=== PATIENT | male | born 1945 | race Caucasian/White ===

== ENCOUNTER 2023-09-12 09:39 | Inpatient (IN) ==
--- OUTSIDE RECORDS SUMMARY | 2023-09-12 09:43 | External Medical Summary | Summary of Care ---
Author Name Unknown Organization [facility] Address [address] [place] [address] Phone [phone] Care Team Providers Care Jewel Bearing Facer Name Role Phone Unavailable Primary Care Provider Unavailabl e Reason for Visit * Reason Onset Date Comments Insurance 07/27/2023 63 Fwd requireme nts Encounter Details Date Type Department Care Team (Late st Contact Info) Description 07/27/2023 Telephone Family Practice [address] [facility] [address] [place] [id number] Latonya Irving, DO [address] [place] [address] Insurance (63 Fwd requirements) Allergies No known active allergiesdocumented as of this encounter (statuses as of 07/27/2023) Medications Medication Sig Dispensed Refills Start Date End Date Status Aspirin 81 MG Oral Tablet Delayed Release Take 1 Tablet by mouth in the morning. 30 Tablet 24 01/22/2022 01/22/2024 Active Betamethasone Valerate 0.1 % External Cream (Valisone) Apply to affected area(s) 2 times a day For rash on foot. 0 01/22/2022 01/22/2024 Active documented as of this encounter (statuses as of 07/27/2023) Social History Tobacco Use Types Packs/Day Years Used Date Smoking Tobacco: Former Pipe Smokeless Tobacco: Never Sex and Gender Information Value Date Recorded Sex Assigned at Not on file Gender Identity Not on file Sexual Orientation Not on file Job Start Date Occupation Industry Not on file Not on file Not on file documented as of this encounter Miscellaneous Notes * Telephone Encounter - Shannon Yang OSA - 07/27/2023 3:05 PM EDT Discussed GOLD requirement, patient acknowledges and understands. Pt aware to maintain his [employer] insurance, regular follow ups, and his pcp will change to us. Pt scheduled with Dr Irving 5.10.24 documented in this encounter Plan of Treatment Upcoming Encounters Date Type Department Care Team (Late st Contact Info) Description 2023 1:40 PM EDT Office Visit Family Practice [address] [facility] [address] [place] [address] Latonya Irving DO [address] [place] [address] 2023 2:20 PM EDT Pharmacy Family Practice [address] 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 [address] [address] Health Maintenance Due Date Last Done Comments Depression Screening 1957 Hepatitis C Screening 08/05/1963 DTaP,Tdap,and Td Vaccines (1 - Tdap) 08/05/1962 Zoster Vaccines (3 of 3) 03/23/2022 01/26/2022, 12/28 COVID-19 Vaccine (4 - season) 2022 01/22/2021, 06/11/2020, 05/21/2020 Influenza Vaccine (FLU shot) (Season Ended) 2023 12/19/2020, 01/18/2019, 01/20/2018, Additional history exists Pneumococcal Vaccine: 65+ Years Completed 01/20/2016, 07/02/2010 GARDASIL-HPV IMMUNIZATION SERIES Aged Out No longer eligible based on patient's age to complete this topic Hepatitis B Aged Out No longer eligi ble based on patient's age to complete this topic MENINGOCOCCAL (MENACTRA/MENVEO) Aged Out No longer eligible based on patient's age to complete this topic documented as of this encounter Medical Devices Not on filedocumented as of this encounter
--- OUTSIDE RECORDS SUMMARY | 2023-09-12 09:43 | External Medical Summary | Summary of Care ---
Author Name Unknown Organization [facility] Address [address] [place] [address] Phone [phone] Care Team Providers Care Radiology Orderly Name Role Phone Latonya Irving DO Primary Care Provider [phone] Reason for Visit * Reason Comments NEW PATIENT Encounter Details Date Type Department Care Team (Late st Contact Info) Description 2023 1:40 PM EDT Office Visit Family Practice [address] [facility] [address] [place] [address] Latonya Irving [address] [place] [address] History of prostate cancer*; Hypertension goal BP (blood pressure) < 140/90; Hx of CABG; Coronary artery disease involving bad river band coronary artery of bad river band heart without angina pectoris; Dyslipidemia; Type 2 diabetes mellitus with hemoglobin A1c goal of less than 7.0% ([facility]); Risk and functional assessment Allergies No known active allergiesdocumented as of this encounter (statuses as of 2023) Medications Medication Sig Dispensed Refills Start Date End Date Status Aspirin 81 MG Oral Tablet Delayed Release Take 1 Tablet by mouth in the morning. 30 Tablet 24 01/22/2022 01/22/2024 Active Betamethasone Valerate 0.1 % External Cream (Valisone) Apply to affected area(s) 2 times a day For rash on foot. 0 01/22/2022 01/22/2024 Active OneTouch Delica Plus [id number] Test blood sugar every morning before meal 0 07/02/2023 Active OneTouch Ultra Test In Vitro Strip Test blood sugar every morning 0 06/30/2023 06/29/2024 Active Atorvastatin Calcium 40 MG Oral Tablet (Lipitor) Take 1 Tablet by mouth in the morning. 0 07/26/2023 2023 Discontinued (Refill) Metoprolol Tartrate 25 MG Oral Tablet (Lopressor) Take 1 Tablet by mouth in the morning and 1 Tablet before bedtime. 0 07/26/2023 2023 Discontinued (Refill) Lisinopril 10 MG Oral Tablet (Prinivil) Take 1 Tablet by mouth at bedtime. 0 06/30/2023 2023 Discontinued (Refill) documented as of this encounter (statuses as of 2023) Active Problems Problem Noted Date Diagnosed Date History of prostate cancer 2023 Hypertension goal BP (blood pressure) < 140/90 0 2023 Hx of CABG 2023 Coronary artery disease invo lving bad river band coronary artery of bad river band heart without angina pectoris 2023 Type 2 diabetes mellitus wit h hemoglobin A1c goal of less than 7.0% 2023 Dyslipidemia 2023 documented as of this encounter (statuses as of 2023) Immunizations Name Administration Dates Next Due COVID-19 mRNA, LNP-s, No Pre serve, 2-Dose Series (BetKlub) 01/22/2021,06/11/2020,05/21/2020 COVID-19, MRNA-LNP, 23-24, P F, 30 MCG/0.3 mL, 12 YRS AND ABOVE, IM [facility] 02/15/2023,09/10/2022 COVID-19, mRNA, LNP-s, PF, B ooster, 100mcg/0.5mg (Moderna) 12/17/2021,07/10/2021 Pneumococcal Conjugate Vacc, 13 Valent (Prevnar) 01/20/2016 Pneumococcal Polysaccharide PPV23 (Pneumovax) 07/02/2010 RSV Vac., Recomb, Adjuvant, PF,0.5 Ml (Arexvy) 02/15/2023 Season Influenza, Quad, PF, Adjuvanted, 65+ Yrs, IM (FLUAD) 12/19/2020 Seasonal Influenza Virus Vac cine, Unspecified Formulation 12/11/2019,01/15/2007,01/23/2006 Seasonal Influenza, Quadriva lent Hd, 65+ Yrs 01/21/2022 Seasonal Influenza, Split, I IV3, No Preserve, Inj 12/30/2012,01/21/2012 Seasonal Influenza, Trivalen t, Adjuvanted, 65+ yrs 01/13/2017 Seasonal Influenza, Trivalen t, High Dose, No Preserve, IM 01/18/2019,01/20/2018,01/15/2016 TDAP (age 11 and older)(Adacel) 01/25/2018,01/20 Varicella Zoster Vaccine (Adult) 01/20/2007 Zoster Vaccine Recombinant (Shingrix) 09/22/2022 ,01/26/2022 documented as of this encounter Social History Tobacco Use Types Packs/Day Years Used Date Smoking Tobacco: Former Pipe Smokeless Tobacco: Never Tobacco Cessation:Counseling Given: Yes Alcohol Use Standard Drinks/Week Comments Yes 0 (1 standard drink = 0.6 oz pur e alcohol) occasional beer Hunger Vital Sign Answer Date Recorded Within the past 12 months, y ou worried that your food would run out before you got the money to buy more. Never true 07/30/19 24 Within the past 12 months, t he food you bought just didn't last and you didn't have money to get more. Never true 07/30/2023 Sex and Gender Information Value Date Recorded Sex Assigned at Not on file Gender Identity Not on file Sexual Orientation Not on file Job Start Date Occupation Industry Not on file Not on file Not on file documented as of this encounter Last Filed Vital Signs Vital Sign Reading Time Taken Comments Blood Pressure 122/60 2023 1:53 PM EDT Pulse 76 2023 1:53 PM EDT Temperature 36.4 C (97.5 F) 2023 1:53 PM ED T Respiratory Rate 12 2023 1:53 PM EDT Oxygen Saturation 95% 2023 1:53 PM EDT Inhaled Oxygen Concentration - - Weight 72.6 kg (160 lb) 2023 1:53 PM EDT Height 163.8 cm (5' 4.5") 2023 1:53 PM EDT Body Mass Index 27.04 2023 1:53 PM EDT documented in this encounter Patient Instructions * Patient Instructions* RavindraMabel chakrabortySUSANA - 2023 1:51 PM EDT Patient Instructions - Fall Prevention (This education is for all patients over 65 regardless of symptoms) Remember to take your current medications as prescribed. In order to prevent falls, you are encouraged to: Exercise Utilize assistive/adaptive devices Avoid multifocal lenses when walking Avoid hazards in home Maintain a regular toileting schedule Any questions please contact our office. Preventing Falls in the Home (This education is for all patients over 65 regardless of symptoms) As you get older, falls are more likely. Thats because your reaction time slows. Your muscles and joints may also get stiffer, making them less flexible. Illness, medications, and vision changes can also affect your balance. A fall could leave you unable to live on your own. To make your home safer, follow these tips: Floors Put nonskid pads under area rugs Remove throw rugs Replace worn floor coverings Tack carpets firmly to each step on carpeted stairs. Put nonskid strips on the edges of uncarpeted stairs Keep floors and stairs free of clutter and cords Arrange furniture so there are clear pathways Clean up any spills right away Bathrooms Install grab bars in the tub or shower Apply nonskid strips or put a nonskid rubber mat in the tub or shower Sit on a bath chair to bathe Use bathmats with nonskid backing Lighting Keep a flashlight in each room Put a nightlight along the pathway between the bedroom and the bathroom Arturo Patient Education Copyright 2008 - 2010 Arturo except where otherwise noted Preventing Falls: Exercises to Improve Balance, Flexibility, Strength, and Staying Power (This education is for all patients over 65 regardless of symptoms) Certain types of exercises may help make you less likely to fall. Try the ones below. Or do other exercises that your healthcare provider suggests. Depending on your health, you may need to start slowly. Dont let that stop you. Even small amounts of exercise can help you. Be sure to talk to yourhealthcare provider before starting any exercise program. Improve Balance Many types of exercise can help improve balance. Alli chi and yoga are good examples. Heres another one to try. You can do it anytime and almost anywhere. Stand next to a counter or solid support. Push yourself up onto your tiptoes. Hold for 5 seconds. If you start to lose your balance, hold on to the counter. Rest and repeat 5 times. Work up to holding for 20 to 30 seconds, if you can. Increase Flexibility Being more flexible makes it easier for you to move around safely. Try exercises like the seated hamstring stretch. Sit in a chair and put one foot on a stool. Straighten your leg and reach with both hands down either side of your leg. Reach as far down your leg as you can. Hold for about 20 seconds. Go back to the starting position. Then repeat 5 times. Switch legs. Build Strength Resistance exercises help build strength. You can do them without equipment. Or you can use weights, elastic bands, or special machines. One such exercise is called the biceps curl. You can hold a 1 pound weight or even a can of soup. Do this exercise at least 3 times a week. Strive for everyday. Sit up straight in a chair. Keep your elbow close to your body and your wrist straight. Bend your arm, moving your hand up to your shoulder. Then slowly lower your arm. Repeat 5 times. Switch to the other arm. Build Your Staying Power Aerobic exercises make your heart and lungs stronger so you can keep moving longer. Walking and swimming are two of the best types of exercises you can do. Using a stationary bike is great, too. Find an aerobic exercise that you enjoy. Start slowly and build up. Even 5 minutes is helpful. Aimfor a goal of 30 minutes, at least 3 times a week. You dont have to do 30 minutes in one session. Break it up and walk a little throughout the day. More Helpful Tips Start easy. Slowly work up to doing more. Talk with your healthcare provider about the best exercises for you. Call senior centers or health clubs about exercise programs. If needed, have a family member watch you walk every so often to check your stability. Exercise with a friend. Choose an activity you both enjoy. Try exercises that you can do anytime, anywhere. Here are two examples. Have someone with you when you first try these: Practice walking by placing one foot right in front of the other. Stand up and sit down 10 times. Repeat this throughout the day. [employer] Jungle Patient Education Copyright 2008 [employer] Jungle except where otherwise noted. Preventing Falls: Moving Safely Using a Cane or Walker (This education is for all patients over 65 regardless of symptoms) Keep the cane away from your feet so you dont trip. A walking aid, such as a cane or walker, can help you stay more independent and avoid falls. Remember to keep your walking aid within easy reach when youre in a chair or in bed. And learn how to use it safely so you dont injure yourself. Using a Cane If you have a stronger side, hold the cane on that side. Get your balance. Move the cane and your weaker leg forward. Support your weight on both the cane and your weaker side. Step with your stronger leg. Start again from step 1. If youre using a folding walker, be sure you know how to lock it open. Check that its locked open before each use. Using a Walker Roll the walker (or lift it, if youre using one without wheels) forward about 12 inches. Step forward with your weaker leg first. Use the walker to help keep your balance. Bring your other foot forward to the center of the walker. Start again from step 1. Helpful Tips Check with your healthcare provider about the right walking aid to use. Ask about a walker with a seat attached. Check the tips of your cane or walker to make sure they have nonskid covers. Move slowly from room to room. Dont concepcion. Sit down to get dressed. Use a brian pack or backpack to keep your hands free. Get help for jobs that mean climbing, even on a stepstool. [employer] Patient Education Copyright 2008 - 2010 [employer] Jungle except where otherwise noted. Treating Urinary Incontinence in Men (This education is for all patients over 65 regardless of symptoms) You can't always control the release of urine. You may leak urine. Or you may not be able to hold your urine until you can get to a bathroom. This is called urinary incontinence. The problem can be managed. Talk to your doctor about your treatment options. Taking Medications Prescription medications may help you. They may: Help the sphincter to work better. (This is the muscle that closes to keep urine from leaking out of the bladder.) Help stop the bladder from tory too often to push urine out. Help the bladder muscles contract with more force. Help relax the sphincter muscle and allow urine to flow more freely. Making Changes to Your Routine Certain changes in your daily routine may help. These include: Avoiding caffeine and alcohol. Using timed voiding. This is following a schedule for drinking fluids and urinating. Doing Kegel exercises daily. These exercises involve tightening the muscles in your sphincter and around your bladder to help strengthen them. Your doctor can explain how to do them. Using a Catheter A catheter is a narrow tube that is inserted through the urethra into the bladder. It drains urine.A condom catheter covers the penis. It channels urine into a collection bag. It is worn most of thetime. Intermittent catheterization means inserting a catheter to drain the bladder, then removing it. This is done on a regular schedule. Having Surgery If other options don't work, surgery may be recommended. If surgery is an option, your healthcare provider can discuss it with you and explain its risks and benefits. Healing After Prostate Surgery Surgery on the prostate gland can cause incontinence. Most often, the incontinence is only for a short time. It clears up when healing is complete. Very rarely, prostate surgery can result in permanent incontinence. documented in this encounter Progress Notes * Latonya Irving, - 2023 2:00 PM EDT SUBJECTIVE: Chief Complaint Patient presents with NEW PATIENT HPI: Donavan Hanson is a 78 year old male who presents today to [facility] care. Pt was previously seen by [facility] in [place]. Pt notes that he has a nagging back pain. He notes he has always had this. He does follow with a chiropractor regularly. 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 He notes that sitting for a couple of minutes will take his pain away. Pt notes that he dropped a rock on his left big toe. He notes that his toenail fell off and the newone started to come in. He notes that he was having trouble with an ingrown toenail. They kept trimming the skin away. He notes that it is now feeling better. He occasionally had issues with ingrown toenails previously. PHM: There is no problem list on file for this patient. Current Outpatient Medications Medication Sig Dispense Refill Aspirin 81 MG Oral Tablet Delayed Release Take 1 Tablet by mouth in the morning. 30 Tablet 24 Betamethasone Valerate 0.1 % External Cream (Valisone) Apply to affected area(s) 2 times a day For rash on foot. Atorvastatin Calcium 40 MG Oral Tablet (Lipitor) Take 1 Tablet by mouth in the morning. Metoprolol Tartrate 25 MG Oral Tablet (Lopressor) Take 1 Tablet by mouth in the morning and 1 Tablet before bedtime. Grape Seed Complex Oral Capsule Take by mouth. 1200 mg once daily in the morning Triple [place] Complex Oral Capsule Delayed Release Take 1 Capsule by mouth in the morning. Multivitamin Adult Oral Tablet Take 1 Tablet by mouth in the morning. Kimberley Root 550 MG Oral Capsule Take 1 Capsule by mouth. Three times weekly Calcium Citrate 333 MG Oral Tablet Take 2 Tablets by mouth in the morning. Vitamin D3 1000 UNIT Oral Capsule Take 1 Capsule by mouth in the morning. Lisinopril 10 MG Oral Tablet (Prinivil) Take 1 Tablet by mouth at bedtime. OneTouch Delica Plus [id number] Test blood sugar every morning before meal OneTouch Ultra Test In Vitro Strip Test blood sugar every morning No current facility-administered medications for this visit. No past medical history on file. No past surgical history on file. Review of patient's allergies indicates: No Known Allergies No family history on file. No family status information on file. Social History Tobacco Use Smoking status: Former Types: Pipe Smokeless tobacco: Never Substance Use Topics Alcohol use: Yes Comment: occasional beer Vaping/E-Cigarette Use Vaping/E-Cigarette Substances Vaping/E-Cigarette Devices REVIEW OF SYSTEMS: Review of Systems Constitutional: Negative for chills, fatigue, fever and unexpected weight change. HENT: Negative for congestion, ear pain, sinus pressure, sinus pain and sore throat. Eyes: Negative for pain, discharge and visual disturbance. Respiratory: Negative for cough, chest tightness, shortness of breath and wheezing. Cardiovascular: Negative for chest pain, palpitations and leg swelling. Gastrointestinal: Negative for abdominal pain, constipation, diarrhea, nausea and vomiting. Musculoskeletal: Positive for arthralgias and back pain. Negative for gait problem and joint swelling. Skin: Negative for color change, pallor and rash. Hematological: Negative for adenopathy. OBJECTIVE: BP 122/60 (BP Site: Left Arm, BP Position: Sitting, BP Cuff Size: Regular) | Pulse 76 | Temp 36.4 C (97.5 F) (Tympanic) | Resp 12 | Ht 1.638 m (5' 4.5") | Wt 72.6 kg (160 lb) | SpO2 95% | BMI 27.04 kg/m | BSA 1.82 m PHYSICAL EXAM: Physical Exam Constitutional: General: He is not in acute distress. Appearance: He is well-developed. HENT: Head: Normocephalic and atraumatic. Right Ear: Tympanic membrane, ear canal and external ear normal. Left Ear: Tympanic membrane, ear canal and external ear normal. Nose: Nose normal. No mucosal edema or rhinorrhea. Mouth/Throat: Pharynx: No oropharyngeal exudate. Eyes: General: No scleral icterus. Conjunctiva/sclera: Conjunctivae normal. Pupils: Pupils are equal, round, and reactive to light. Neck: Thyroid: No thyromegaly. Cardiovascular: Rate and Rhythm: Normal rate and regular rhythm. Heart sounds: No murmur heard. No friction rub. No gallop. Pulmonary: Effort: No respiratory distress. Breath sounds: Normal breath sounds. No wheezing, rhonchi or rales. Chest: Chest wall: No tenderness. Abdominal: General: Bowel sounds are normal. Palpations: Abdomen is soft. There is no mass. Tenderness: There is no abdominal tenderness. There is no guarding. Musculoskeletal: General: No tenderness or deformity. Normal range of motion. Cervical back: Normal range of motion and neck supple. Lymphadenopathy: Cervical: No cervical adenopathy. Skin: General: Skin is warm and dry. Findings: No rash. Comments: Toenail curling on right side of big toe Neurological: Mental Status: He is alert and oriented to person, place, and time. Psychiatric: Speech: Speech normal. Behavior: Behavior normal. Thought Content: Thought content normal. ASSESSMENT/PLAN: (Z85.46) History of prostate cancer (primary encounter diagnosis) Plan: PSA Pt will complete PSA. Will await results. Pt notes that he had his prostate removed. (I10) Hypertension goal BP (blood pressure) < 140/90 Plan: ALBUMIN / CREATININE RATIO, URINE BP controlled. To complete urine. He will remain on current regimen. (Z95.1) Hx of CABG (I25.10) Coronary artery disease involving bad river band coronary artery of bad river band heart without angina pectoris Plan: COMPREHENSIVE METABOLIC PANEL, CBC WITH WBC DIFFERENTIAL Pt will complete lab studies. No changes for now. Has not followed with podiatry as over 10 years since CABG. Remain on current medications. (E78.5) Dyslipidemia Plan: LIPID PANEL WITH DIRECT LDL IF TG IS HIGH Pt will complete fasting lipid panel. (E11.9) Type 2 diabetes mellitus with hemoglobin A1c goal of less than 7.0% (HCC) Plan: HEMOGLOBIN A1C Pt will complete A1C. He is not currently on medication. Will monitor. (Z13.9) Risk and functional assessment Plan: See nursing note. Follow-up: 4 months Total time today including reviewing chart before the visit, pertinent labs, imaging reports, face to face time, and documentation time was 47 minutes. Laotnya Irving DO documented in this encounter Nursing Notes * Mabel Waite LPN - 2023 1:51 PM EDT Patient here to establish as a new patient. Has chronic back pain and sees a chiropractor monthly. States he has issues with ingrown toenails in the past. States he saw a truck service technician a long time ago in [place]. States he dropped a rock left great toe approx 1 year ago and the nail fell off. States it is growing back now. States it bothered him until 2 days ago. documented in this encounter Plan of Treatment Upcoming Encounters Date Type Department Care Team (Late st Contact Info) Description 12/13/2023 1:00 PM EDT Office Visit Family Practice [address] [place] [id number] Latonya Irving DO [address] [place] [address] Scheduled Orders Name Type Priority Associated Diagnoses Orde r Schedule LIPID PANEL WITH DIRECT LDL IF TG IS HIGH Lab Routine Dyslipidemia Expected: 2023, Expires: 08/05/2024 COMPREHENSIVE METABOLIC PANEL Lab Routine Hx of CABG Coronary artery disease involving bad river band coronary artery of bad river band heart without angina pectoris Expected: 2023 (Approximate), Expires: 08/05/2024 HEMOGLOBIN A1C Lab Routine Type 2 diabetes mellitus with hemoglobin A1c goal of less than 7.0% (HCC) Expected: 2023 (Approximate), Expires: 08/05/2024 PSA Lab Routine History of prostate cancer Expected: 2023 (Approximate), Expires: 08/05/2024 CBC WITH WBC DIFFERENTIAL Lab Routine Hx of CABG Coronary artery disease involving bad river band coronary artery of bad river band heart without angina pectoris Expected: 2023 (Approximate), Expires: 08/05/2024 ALBUMIN / CREATININE RATIO, URINE Lab Routine Hypertension goal BP (blood pressure) < 140/90 Expected: 2023 (Approximate), Expires: 08/05/2024 Health Maintenance Due Date Last Done Comments GFR 1945 HbA1c 08/05/1949 Albumin/Creatinine Ratio 08/05/1961 Diabetic Foot Exam 08/05/1961 Diabetic Eye Exam 01/23/2023 01/23/2022, , 01/20/2019, Additional history exists Influenza Vaccine (FLU shot) (Season Ended) 2023 01/21/2022, 12/19/2020, 12/11/2019, Additional history exists Depression Screening 08/05/2024 2023 DTaP,Tdap,and Td Vaccines (3 - Td or Tdap) 01/26/2028 01/25/2018, 01/20/2007 Pneumococcal Vaccine: 65+ Years Completed 01/20/2016, 07/02/2010 Zoster Vaccines Completed 09/22/2022, 12/29, 01/20/2007 COVID-19 Vaccine Completed 02/15/2023, , 09/10/2022, Additional history exists GARDASIL-HPV IMMUNIZATION SERIES Aged Out No longer eligible based on patient's age to complete this topic Hepatitis B Aged Out No longer eligi ble based on patient's age to complete this topic MENINGOCOCCAL (MENACTRA/MENVEO) Aged Out No longer eligible based on patient's age to complete this topic documented as of this encounter Medical Devices Not on filedocumented as of this encounter Visit Diagnoses Diagnosis History of prostate cancer- Primary Personal history of malignant neoplasm of prostate Hypertension goal BP (blood pressure) < 140/90 Unspecified essential hypertension Hx of CABG Postsurgical aortocoronary bypass status Coronary artery disease involving bad river band coronary artery of bad river band heart without angina pectoris Dyslipidemia Other and unspecified hyperlipidemia Type 2 diabetes mellitus with hemoglobin A1c goal of less than 7.0% ([facility]) Risk and functional assessment Screening for unspecified condition documented in this encounter Care Teams Radiology Orderly Relationship Specialty Start Date End Date Latonya Irving DO [address] [place] [address] PCP - General Family Medicine 08/06/23 documented as of this encounter
--- OUTSIDE RECORDS SUMMARY | 2023-09-12 09:43 | External Medical Summary | Summary of Care ---
Author Name Unknown Organization [facility] Address [address] [place] [address] Phone [phone] Care Team Providers Care Substation Operator Transforming Name Role Phone Latonya Lee Primary Care Provider Encounter Details Date Type Department Care Team (Late st Contact Info) Description 2023 Refill Family Practice [address] [place] [address] [place] [phone] Em Hernandez, [facility] [address] [place], [place] [phone] Hypertension goal BP (blood pressure) < 140/90*; Dyslipidemia Allergies No known active allergiesdocumented as of [...] rash on foot. 0 01/22/2022 01/22/2024 Active Grape Seed Complex Oral Capsule Take by mouth. 1200 mg once daily in the morning 0 Active Triple [place] Complex Oral Capsule Delayed Release Take 1 Capsule by mouth in the morning. 0 Active Multivitamin Adult Oral Tablet Take 1 Tablet by mouth in the morning. 0 Active Calcium Citrate 333 MG Oral Tablet Take 2 Tablets by mouth in the morning. 0 Active Vitamin D3 1000 UNIT Oral Capsule Take 1 Capsule by mouth in the morning. 0 Active OneTouch Delica Plus [id number] Test blood sugar every morning before meal 0 07/02/2023 Active OneTouch Ultra Test In Vitro Strip Test blood sugar every morning 0 06/30/2023 06/29/2024 Active Atorvastatin Calcium 40 MG Oral Tablet (Lipitor)Indicati ons:Dyslipidemia Take 1 Tablet by mouth in the morning. 100 Tablet 3 2023 Active Lisinopril 10 MG Oral Tablet (Prinivil)Indicat ions:Hypertension goal BP (blood pressure) < 140/90 Take 1 Tablet by mouth at bedtime. 100 Tablet 3 2023 Active Metoprolol Tartrate 25 MG Oral Tablet (Lopressor)Indica tions:Hypertensio n goal BP (blood pressure) < 140/90 Take 1 Tablet by mouth in the morning and 1 Tablet before bedtime. 100 Tablet 3 2023 Active Atorvastatin Calcium 40 MG Oral Tablet [...] CABG 2023 Coronary artery disease invo lving [place] coronary artery of [place] heart without angina pectoris 2023 Type 2 diabetes mellitus wit h hemoglobin A1c goal of less than 7.0% 2023 Dyslipidemia 2023 documented as of this encounter (statuses as of 2023) Immunizations Name Administration Dates Next Due COVID-19 mRNA, LNP-s, No Pre serve, 2-Dose Series (KIT digital) 01/22/2021,06/11/2020,05/21/2020 COVID-19, MRNA-LNP, 23-24, P F, 30 MCG/0.3 mL, 12 YRS AND ABOVE, IM (PFIZER-Comirnaty) 02/15/2023,09/10/2022 COVID-19, mRNA, LNP-s, PF, B ooster, [...] Smoking Tobacco: Former Pipe Smokeless Tobacco: Never Alcohol Use Standard Drinks/Week Comments Yes 0 (1 standard drink = 0.6 oz pur e alcohol) occasional beer Hunger Vital Sign Answer Date Recorded Within the past 12 months, y ou worried that your food would run out before you got the money to buy more. Never true 07/30/19 Within the past 12 months, t he [...] encounter Miscellaneous Notes * Telephone Encounter - Latonya Lee DO - 2023 2:39 PM EDTSigned Prescriptions: Disp Refills Atorvastatin Calcium 40 MG Oral Tablet (Li*100 Ta*3 Sig: Take 1 Tablet by mouth in the morning.Authorizing Provider: LATONYA LEE Lisinopril 10 MG Oral Tablet (Prinivil) 100 Ta*3 Sig: Take 1 Tablet by mouth at bedtime.Authorizing Provider: LATONYA LEE Metoprolol Tartrate 25 MG Oral Tablet (Lop*100 Ta*3 Sig: Take 1 Tablet by mouth in the morning and 1 Tablet before bedtime.Authorizing Provider: LATONYA LEE * Telephone Encounter - Em Hernandez RPh - 2023 2:23 PM EDT Saw pt for medication review today. Pt interested in enrolling in [facility] [employer] mail order. Pended chronic medications below for approval with appropriate pharmacy. ThanksEm, PharmD PGY1 Yard Switcher 2023 2:25 PM documented in this encounter Plan of Treatment Upcoming Encounters Date Type Department Care Team (Late st Contact Info) Description 12/13/2023 1:00 PM EDT Office Visit Family Practice [address] [facility] [address] [place] [phone] Latonya Lee DO [address] [place] [address] Health Maintenance Due Date Last Done Comments [...] as of this encounter Visit Diagnoses Diagnosis Hypertension goal BP (blood pressure) < 140/90- Primary Unspecified essential hypertension Dyslipidemia Other and unspecified hyperlipidemia documented in this encounter Care Teams Substation Operator Transforming Relationship Specialty Start Date End Date Latonya Lee DO [address] [place] [facility] [place] [address] PCP - General Family Medicine 08/06/23 documented as of this encounter
--- OUTSIDE RECORDS SUMMARY | 2023-09-12 09:43 | External Medical Summary | Summary of Care ---
Author Name Unknown Organization [facility] Address [address] [place] [address] Phone [phone] Care Team Providers Care Medical Technologist Blood Bank Name Role Phone Latonya Irving Primary Care Provider [phone] Reason for Visit * Reason Comments Dosage Adjustment In Person (Anticoag Cl inic) Medication Management Encounter Details Date Type Department Care Team (Late st Contact Info) Description 2023 2:20 PM EDT Pharmacy Family Practice [address] [phone] College, Pharmacist [address] [id number] Medication management* Allergies No known active allergiesdocumented as of [...] daily in the morning 0 Active Triple [place] Complex Oral Capsule Delayed Release Take 1 [...] the morning. 0 Active OneTouch Delica Plus [id number] Test blood sugar every morning before meal [...] before bedtime. 0 07/26/2023 2023 Discontinued (Refill) Lucy Root 550 MG Oral Capsule Take 1 Capsule by mouth. Three times weekly 0 2023 Discontinued (Medication List Clean Up) Lisinopril 10 MG Oral Tablet (Prinivil) Take 1 Tablet by mouth at bedtime. 0 06/30/2023 2023 Discontinued (Refill) documented as of this encounter (statuses as of 2023) Active Problems Problem Noted Date Diagnosed Date History of prostate cancer 2023 Hypertension goal BP (blood pressure) < 140/90 0 2023 Hx of CABG 2023 Coronary artery disease invo lving [place] coronary artery of [place] heart without angina pectoris 2023 Type 2 diabetes mellitus wit h hemoglobin A1c goal of less than 7.0% 2023 Dyslipidemia 2023 documented as of this encounter (statuses as of 2023) Immunizations Name Administration Dates Next Due COVID-19 mRNA, LNP-s, No Pre serve, 2-Dose Series (VibeWrite) 01/22/2021,06/11/2020,05/21/2020 COVID-19, MRNA-LNP, 23-24, P F, 30 MCG/0.3 mL, 12 YRS AND ABOVE, IM ([facility]) 02/15/2023,09/10/2022 COVID-19, mRNA, LNP-s, PF, B ooster, [...] on file documented as of this encounter Progress Notes * Em Hernandez, [facility] - 2023 12:22 PM EDT Medication Therapy [facility] - Medication Reconciliation Donavan Hanson is an 78 year old being seen for medication reconciliation. Prescription insurance information: [employer] Mad[employer] Do you have any other prescription coverage: No Preferred pharmacy: [facility] ([facility]) [x] Problem list reviewed [x] Allergies reviewed and updated if needed [x] Drug interaction check completed [x] HEDIS list addressed Immunizations: Up to Date- added external vaccinations based on [facility] documentation Medication Organization/Adherence: Has home care nurse or caregiver: no Patient uses a pill box? No- helps him When you are at home, how often do you miss doses of medications? Never How difficult is it for you to pay for your medications? Not difficult at all How often do you experience side effects from your medications? Never Labs/Vitals/Risk Scores: The ASCVD Risk score (Kevyn MUNOZ, et al., 2019) failed to calculate for the following reasons: The 2019 ASCVD risk score is only valid for ages 40 to 79 The patient has a prior VA or stroke diagnosis BP Readings from Last 3 Encounters: 08/06/23 122/60 06/14/22 130/62 No results for input(s): "HGBA1C" in the last 07528 hours. No results for input(s): "EGFR" in the last 06687 hours. Creatinine clearance cannot be calculated (No successful lab value found.) Assessment & Plan: Medication discrepancies identified: none Dose/frequency of medications appropriate for current renal function? Unable to determine at this time as this pt is new to [facility] and does not have baseline lab work performed yet. Other medication problems identified: - lucy root and baby ASA interaction: increase risk of bleeding. Pt reported he does easy bruise and does not understand why. Patient education provided: educated pt on benefit of mail order Referral pended for follow up management of: N/A Summary- Changes & Recommendations: Medication reconciliation completed with patient. Recommended pt stop lucy root supplement. Pt agreeable. Enrolled pt in mail order. Provided [employer] number to apply. Repeat med rec visit scheduled in 1 year Em Hernandez RPh Clinical Pharmacist - Lawn Sprinkler Installer Medication Therapy Management [facility] 2023, 12:22 PM documented in this encounter Plan of Treatment Upcoming Encounters Date Type Department Care Team (Late st Contact Info) Description 12/13/2023 1:00 PM EDT Office Visit Family Practice [address] [place] [address] [place] [address] Latonya Irving DO [address] [place] [address] Health Maintenance Due Date Last Done Comments [...] as of this encounter Visit Diagnoses Diagnosis Medication management- Primary Encounter for long-term (current) use of other medications documented in this encounter Care Teams Medical Technologist Blood Bank Relationship Specialty Start Date End Date Latonya Irving DO [address] [place] [address] PCP - General Family Medicine 08/06/23 documented as of this encounter
--- NOTE | 2023-09-12 10:04 | Emergency Department Note ---
Impression & Plan Dizziness, Ataxia, Bilateral carotid artery disease, Cerebrovascular disease ED Provider Note NAME: ONI ROGERS AGE: 78 SEX: M : 1945 ARRIVES VIA: Walk-In INFORMANT: Patient, the patient's significant other ED PROVIDER(S): Puneet Irvin DO CHIEF COMPLAINT: Strokelike symptoms HPI: The patient is an 78-year-old male who presented to the emergency department for an evaluation of strokelike symptoms. The patient started noticing dizziness and disequilibrium since last evening. He was at a car show and when he brought his car home in the evening he started noticing he was having trouble with his right ear. He notices decreased hearing in his right ear. He also notices dizziness and vertigo. The patient denies having any headache. He does note nausea. He denies having any chest pain or difficulty breathing. The patient does not have a history of stroke or atrial fibrillation. ROS: See above HPI for pertinent positives & negatives. A total of 10 systems reviewed and were otherwise negative. PAST MEDICAL HISTORY: See Below PAST SURGICAL HISTORY: See Below FAMILY HISTORY: See Below SOCIAL HISTORY: See Below HOME MEDICATIONS: See Below ALLERGIES: See Below VITALS: See Below PHYSICAL EXAMINATION: GENERAL: Patient is awake alert in no acute distress patient is resting comfortably and showing no signs of anxiety EYES: The conjunctivae are clear. The pupils are round and reactive. EARS, NOSE, MOUTH AND THROAT: The nose is without any evidence of any deformity. Tympanic membranes are clear bilaterally. NECK: The neck is nontender and supple. RESPIRATORY: Normal respiratory effort is noted there is no evidence of wheezing rhonchi or rales CARDIOVASCULAR: Regular heart sounds were noted to auscultation. Systolic murmur suggested. GASTROINTESTINAL: The abdomen is soft. Abdomen is nontender. MUSCULOSKELETAL/EXTREMITIES: There is no evidence of gross deformity full range of motion is noted in the hips and shoulders. SKIN: There is no obvious evidence of any rash. There are no petechiae, pallor or cyanosis noted. NEUROLOGIC: Patient is awake alert and oriented x3 strength is symmetric patellar reflexes are 2+ bilaterally MEDICAL DECISION MAKING: The patient is an 78-year-old male who presented to the emergency department for an evaluation of decreased hearing in his right ear and vertigo. He did not have any obvious other focal neurologic deficits. He was not made a stroke alert because his symptoms began yesterday. The patient did appear to have some ataxia on reevaluation. He was treated with Zofran in the emergency department. He was also given aspirin. I discussed the patient's laboratory and radiographic studies with him. He was found to have significant carotid artery atherosclerosis as well as vertebral artery disease. Given his findings on CT which include an age-indeterminate cerebellar infarct I do feel the patient is at high risk for a central nervous system cause for his presentation today. For this reason I discussed his condition with the on-call [employer] [facility]. They have agreed to evaluate the patient in the emergency department for further management and disposition. Triage Nursing notes reviewed. Prior medical records reviewed Vital Signs: reviewed and remarkable for elevated blood pressure. Differential diagnosis: Benign positional vertigo, dehydration, hypovolemia, anemia, tumor, infection, hypoglycemia, electrolyte abnormalities, cardiac sources, intracerebral event, toxicologic, neurologic, as well as other pathologies. ER treatment provided: See below Diagnostics interpreted by me: ECG: Kamilah Rodriguez EKG was obtained in the emergency department. My interpretation is sinus rhythm at 86 bpm. Ectopic atrial beats were noted, poor R wave progression was noted, there is no acute ST segment abnormalities noted. This was compared to a tracing from June 09, 2019. No significant changes were noted. Cardiac Monitoring: An order was placed for continuous cardiac monitoring. The monitor shows a rate of 67 bpm with sinus rhythm. Laboratory studies: As stated above and show below. Imaging studies: See below. Radiographic imaging was reviewed by myself Consultation(s): I discussed this case with Dr. Cobb who is on-call for [employer] [facility] group. Past Med/Surg History Problem List (Updated 09/12/23 @ 13:04 by Puneet Irvin DO) Cerebrovascular disease (Acute) Bilateral carotid artery disease (Acute) Ataxia (Acute) Dizziness (Acute) HTN (hypertension) (Acute) Osteoporosis (Chronic) Fracture of two ribs (Acute) Surgical History S/P CABG x 3 Family History Other Family history non-contributory Social History Smoking Status: Never smoker Tobacco Type: Pipe Preferred Language: Frisian Feels Safe at Home: Yes Allergies Allergies Allergy/AdvReac Type Severity Reaction Status Date / Time No Known Allergies Allergy Unverified 06/09/19 09:54 Home Meds Home Medications Medication Instructions Recorded Confirmed aspirin 81 mg tablet,delayed 81 mg PO DAILY 06/09/19 06/09/19 release (Aspir-) atorvastatin 40 mg tablet 40 mg PO DAILY 06/09/19 06/09/19 calcium carbonate 600 mg-vitamin 1 cap PO DAILY 06/09/19 06/09/19 D3 5 mcg (200 unit) capsule (Calcium 600 + D(3)) cholecalciferol (vitamin D3) 50 2,000 unit PO DAILY 06/09/19 06/09/19 mcg (2,000 unit) chewable tablet grape seed extract 50 mg capsule 0 mg PO DAILY 06/09/19 06/09/19 lisinopril 10 mg tablet 10 mg PO DAILY 06/09/19 06/09/19 lisinopril 10 0.5 tab PO DAILY 06/09/19 06/09/19 mg-hydrochlorothiazide 12.5 mg tablet metoprolol tartrate 25 mg tablet 25 mg PO BID 06/09/19 06/09/19 multivitamin 1 tab PO QAM 06/09/19 06/09/19 omega 3-mgm-zkm-fish oil 1,000 mg 1 cap PO DAILY 06/09/19 06/09/19 (120 mg-180 mg) capsule (Fish Oil) Results & Data (ED) Vital Signs Vital Signs - 24 hr 09/12/23 09:42 09/12/23 10:08 09/12/23 10:09 Temperature 36.6 C Temperature Source Temporal Artery Scan Pulse Rate 75 70 66 Pulse Rate from SpO2 Sensor 66 Respiratory Rate 20 25 H Respiratory Effort / Characteristics Non-Labored Spontaneous Respiratory Depth Normal Blood Pressure 155/85 H Blood Pressure Mean 108 Pulse Oximetry 98 93 Oxygen Delivery Method Room Air Sepsis Recent Fever Within 48 Hours No Sepsis New/Unexplained Change in Mental Status N/A Sepsis Action Taken by Nursing No Action Required 09/12/23 10:36 09/12/23 10:48 09/12/23 11:26 Temperature Temperature Source Pulse Rate 59 L 68 Pulse Rate from SpO2 Sensor 59 L 67 Respiratory Rate 17 13 Respiratory Effort / Characteristics Respiratory Depth Blood Pressure 148/54 H Blood Pressure Mean 106 Pulse Oximetry 95 98 Oxygen Delivery Method Sepsis Recent Fever Within 48 Hours Sepsis New/Unexplained Change in Mental Status Sepsis Action Taken by Nursing 09/12/23 11:27 09/12/23 11:30 Temperature Temperature Source Pulse Rate 70 67 Pulse Rate from SpO2 Sensor 70 68 Respiratory Rate 17 23 Respiratory Effort / Characteristics Respiratory Depth Blood Pressure Blood Pressure Mean Pulse Oximetry 92 91 Oxygen Delivery Method Sepsis Recent Fever Within 48 Hours Sepsis New/Unexplained Change in Mental Status Sepsis Action Taken by Assisted Medications Current Medication List: was personally reviewed by me Laboratory Data Attestation: I reviewed the patient's lab results. 09/12/23 10:07 09/12/23 10:07 Lab Results 09/12/23 09/12/23 Range/Units 10:07 12:27 WBC 6.83 (4.8-10.8) K/ul RBC 3.99 L (4.70-6.10) M/uL Hgb 12.3 L (14.0-18.0) g/dl Hct 36.4 L (42.0-52.0) % MCV 91.2 (80.0-100.0) fL MCH 30.8 (25.0-34.0) pg MCHC 33.8 (32.0-36.0) g/dL RDW Std Deviation 43.1 (36.4-46.3) fL RDW Coeff of [place] 13.0 (11.5-14.5) % Plt Count 263 (130-400) K/uL MPV 9.8 (9.4-12.4) fL Immature Gran % (Auto) 0.1 % Neut % (Auto) 70.7 % Lymph % (Auto) 13.0 % [place] % (Auto) 12.3 % Eos % (Auto) 2.9 % Baso % (Auto) 1.0 % Neut # (Auto) 4.82 (1.40-6.50) K/uL Lymph # (Auto) 0.89 L (1.20-3.40) K/uL [place] # (Auto) 0.84 H (0.11-0.59) K/uL Eos # (Auto) 0.20 (0.00-0.50) K/uL Baso # (Auto) 0.07 (0.00-0.20) K/uL Immature Gran # (Auto) 0.01 (0.01-0.20) K/uL PT 11.2 (9.0-12.0) Seconds INR 1.0 (0.9-1.1) APTT 27 (21-31) Seconds PTT Ratio 1.0 Sodium 137 (136-145) mmol/L Potassium 4.2 (3.5-5.1) mmol/L Chloride 105 (98-107) mmol/L Carbon Dioxide 24 (21-32) mmol/L Anion Gap 8 (3-11) BUN 18 (6-23) mg/dl Creatinine 0.90 (0.6-1.4) mg/dl Est Cr Clr Drug Dosing 61.2 ml/min Est GFR ( Amer) 93.2 ml/min Est GFR (Non-Af Amer) 80.4 ml/min BUN/Creatinine Ratio 20.0 (10-20) Glucose 166 H (70-99(Fasting)) mg/dl Calcium 9.8 (8.6-10.3) mg/dl Magnesium 2.3 (1.7-2.4) mg/dl Total Bilirubin 0.8 (0.2-1.0) mg/dl AST 22 (13-39) U/L ALT 24 (7-52) U/L Alkaline Phosphatase 42 (34-104) U/L Troponin I High Sens 9.0 (0-20) pg/ml Total Protein 7.1 (6.0-8.3) gm/dl Albumin 4.1 (3.4-5.0) gm/dl Globulin 3.0 (2.5-4.0) gm/dl Albumin/Globulin Ratio 1.4 (0.9-2) Urine Color Yellow Urine Appearance Clear (Clear) Urine pH 5.5 (4.5-7.5) Ur Specific [place] > 1.045 H (1.000-1.030) Urine Protein Trace H (Negative) Urine Glucose (UA) Negative (Negative) Urine Ketones 1+ H (Negative) Urine Blood Negative (Negative) Urine Nitrite Negative (Negative) Urine Bilirubin Negative (Negative) Urine Urobilinogen Negative (Negative) Ur Leukocyte Esterase Negative (Negative) Urine WBC (Auto) 0-5 (0-5) /hpf Urine RBC (Auto) 0-2 (0-2) /hpf U Hyaline Cast (Auto) 0-2 (0-2) /lpf U Epithel Cells (Auto) 0-2 (0-2) /hpf Urine Bacteria (Auto) None Seen (None Seen) Administered Medications Discontinued Medications Ioversol (Optiray 320 125ml) 119 ml IV ONCE ONE Stop: 09/12/23 11:04 Last Admin: 09/12/23 11:03 Dose: 119 ml Documented By: SAMANTHA Ondansetron HCl (Ondansetron Inj 2 Mg/Ml 2 Ml Vial) Confirm Administered Dose 4 mg .ROUTE .STK-MED ONE Stop: 09/12/23 11:11 Last Admin: 09/12/23 11:19 Dose: Not Given Documented By: DANG Ondansetron HCl (Ondansetron Inj 2 Mg/Ml 2 Ml Vial) 4 mg IV NOW STA Stop: 09/12/23 11:15 Last Admin: 09/12/23 11:19 Dose: 4 mg Documented By: DANG Imaging Data Attestation: I personally reviewed and interpreted this imaging study as follows: My Impression: CT of the brain was obtained in the emergency department. My interpretation is no intracranial hemorrhage or mass effect, final report below. 1 view chest x-ray was obtained in the emergency department. My interpretation is no free air or definite infiltrate, final report below Radiologist's Impression: Chest X-Ray 09/12/23 10:00 XR chest 1V portable HISTORY: 78 years-old Male neuro deficit, acute stroke suspected acute strokelike symptoms COMPARISON: 01/01/2014 TECHNIQUE: AP view of the chest FINDINGS: Cardiac silhouette is mildly enlarged. Median sternotomy. No pneumothorax or pleural effusion. Subsegmental right basilar airspace opacities. Bones appear grossly intact. IMPRESSION: 1. Mild patchy right basilar opacities may represent atelectasis versus pneumonia. 2. Cardiomegaly without pulmonary edema. ACT 112: Negative or not required by law. The above report was generated using voice recognition software. It may contain grammatical, syntax or spelling errors. Electronically signed by: Morgan Islas M.D. 09/12/2023 11:[address] 09/12/23 10:00 CT angio head w con, CT angio neck with con, CT head/brain wo con CLINICAL HISTORY: 78 years-old Male with neuro deficit, acute stroke suspected. Acute stroke like symptoms COMPARISON STUDY: None TECHNIQUE: Unenhanced axial CT scan of the brain is performed. Subsequently, following the IV administration of 119 cc of Optiray, CT angiogram of the head and neck was performed from the aortic arch to the skull apex. Images are reviewed in the axial, sagittal, and coronal planes. 3-D MIPS images are created and assessed. IV contrast was administered without complication. All measurements were obtained according to NASCET criteria. A dose lowering technique was utilized adhering to the principles of ALARA. CT DOSE: 1008.57 mGy.cm FINDINGS: CT BRAIN: There is no acute intracranial hemorrhage, midline shift, hydrocephalus, intracranial mass, territorial ischemia or abnormal extra-axial collections. Involutional changes with chronic microvascular ischemic disease. There is a linear 1.5 cm hypodense focus within the left mid posterior aspect of the cerebellum on image 6 series 3. No abnormal intra-axial or extra-axial enhancement. Mastoid air cells and middle ear cavities are clear. No calvarial fracture. Paranasal sinuses are clear. CT ANGIOGRAM OF THE HEAD AND NECK: Atherosclerosis of the thoracic aorta. Median sternotomy. Patency of the innominate and image subclavian arteries. The common carotid arteries are patent. There is severe atherosclerosis of the carotid bulbs and proximal cervical segments of the internal carotid arteries. Motion degradation limits the study. 80% stenosis of the proximal cervical segment right ICA with 70% stenosis on the left. Additional areas of high-grade stenosis noted within the bilateral supraclinoid segments of the internal carotid arteries secondary to extensive atherosclerosis. Mild multifocal stenoses of the bilateral middle cerebral arteries. The anterior cerebral arteries are patent. Dominant left vertebral artery. Developmentally diminutive right vertebral artery demonstrates high-grade stenosis within the proximal V3 segment on image 286 secondary to atherosclerotic plaque. Fenestrated basilar artery demonstrates areas of moderate stenosis at the level of the fenestration. Moderate multifocal stenoses of the posterior cerebral arteries bilaterally. No aneurysm or dissection. No proximal branch occlusion identified. No pneumothorax. Unremarkable soft tissues. Degenerative changes of the cervical spine. IMPRESSION: 1. Age-indeterminate 1.5 cm left cerebellar lacunar infarct. 2. No acute or subacute territorial infarct. 3. Atherosclerosis with high grade stenosis of the bilateral proximal cervical and supraclinoid segments of the internal carotid arteries. 4. High-grade stenoses of the V3 segment right vertebral artery with additional multifocal areas of moderate cerebral vascular stenoses as above. ACT 112: Negative or not required by law. The above report was generated using voice recognition software. It may contain grammatical, syntax or spelling errors. Electronically signed by: Morgan Islas M.D. 09/12/2023 11:56 AM Head CTA 09/12/23 10:00 CT angio head w con, CT angio neck with con, CT head/brain wo con CLINICAL HISTORY: 78 years-old Male with neuro deficit, acute stroke suspected. Acute stroke like symptoms COMPARISON STUDY: None TECHNIQUE: Unenhanced axial CT scan of the brain is performed. Subsequently, following the IV administration of 119 cc of Optiray, CT angiogram of the head and neck was performed from the aortic arch to the skull apex. Images are reviewed in the axial, sagittal, and coronal planes. 3-D MIPS images are created and assessed. IV contrast was administered without complication. All measurements were obtained according to NASCET criteria. A dose lowering technique was utilized adhering to the principles of ALARA. CT DOSE: 1008.57 mGy.cm FINDINGS: CT BRAIN: There is no acute intracranial hemorrhage, midline shift, hydrocephalus, intracranial mass, territorial ischemia or abnormal extra-axial collections. Involutional changes with chronic microvascular ischemic disease. There is a linear 1.5 cm hypodense focus within the left mid posterior aspect of the cerebellum on image 6 series 3. No abnormal intra-axial or extra-axial enhancement. Mastoid air cells and middle ear cavities are clear. No calvarial fracture. Paranasal sinuses are clear. CT ANGIOGRAM OF THE HEAD AND NECK: Atherosclerosis of the thoracic aorta. Median sternotomy. Patency of the innominate and image subclavian arteries. The common carotid arteries are patent. There is severe atherosclerosis of the carotid bulbs and proximal cervical segments of the internal carotid arteries. Motion degradation limits the study. 80% stenosis of the proximal cervical segment right ICA with 70% stenosis on the left. Additional areas of high-grade stenosis noted within the bilateral supraclinoid segments of the internal carotid arteries secondary to extensive atherosclerosis. Mild multifocal stenoses of the bilateral middle cerebral arteries. The anterior cerebral arteries are patent. Dominant left vertebral artery. Developmentally diminutive right vertebral artery demonstrates high-grade stenosis within the proximal V3 segment on image 286 secondary to atherosclerotic plaque. Fenestrated basilar artery demonstrates areas of moderate stenosis at the level of the fenestration. Moderate multifocal stenoses of the posterior cerebral arteries bilaterally. No aneurysm or dissection. No proximal branch occlusion identified. No pneumothorax. Unremarkable soft tissues. Degenerative changes of the cervical spine. IMPRESSION: 1. Age-indeterminate 1.5 cm left cerebellar lacunar infarct. 2. No acute or subacute territorial infarct. 3. Atherosclerosis with high grade stenosis of the bilateral proximal cervical and supraclinoid segments of the internal carotid arteries. 4. High-grade stenoses of the V3 segment right vertebral artery with additional multifocal areas of moderate cerebral vascular stenoses as above. ACT 112: Negative or not required by law. The above report was generated using voice recognition software. It may contain grammatical, syntax or spelling errors. Electronically signed by: Morgan Islas M.D. 09/12/2023 11:56 AM Neck CTA 09/12/23 10:00 CT angio head w con, CT angio neck with con, CT head/brain wo con CLINICAL HISTORY: 78 years-old Male with neuro deficit, acute stroke suspected. Acute stroke like symptoms COMPARISON STUDY: None TECHNIQUE: Unenhanced axial CT scan of the brain is performed. Subsequently, following the IV administration of 119 cc of Optiray, CT angiogram of the head and neck was performed from the aortic arch to the skull apex. Images are reviewed in the axial, sagittal, and coronal planes. 3-D MIPS images are created and assessed. IV contrast was administered without complication. All measurements were obtained according to NASCET criteria. A dose lowering technique was utilized adhering to the principles of ALARA. CT DOSE: 1008.57 mGy.cm FINDINGS: CT BRAIN: There is no acute intracranial hemorrhage, midline shift, hydrocephalus, intracranial mass, territorial ischemia or abnormal extra-axial collections. Involutional changes with chronic microvascular ischemic disease. There is a linear 1.5 cm hypodense focus within the left mid posterior aspect of the cerebellum on image 6 series 3. No abnormal intra-axial or extra-axial enhancement. Mastoid air cells and middle ear cavities are clear. No calvarial fracture. Paranasal sinuses are clear. CT ANGIOGRAM OF THE HEAD AND NECK: Atherosclerosis of the thoracic aorta. Median sternotomy. Patency of the innominate and image subclavian arteries. The common carotid arteries are patent. There is severe atherosclerosis of the carotid bulbs and proximal cervical segments of the internal carotid arteries. Motion degradation limits the study. 80% stenosis of the proximal cervical segment right ICA with 70% stenosis on the left. Additional areas of high-grade stenosis noted within the bilateral supraclinoid segments of the internal carotid arteries secondary to extensive atherosclerosis. Mild multifocal stenoses of the bilateral middle cerebral arteries. The anterior cerebral arteries are patent. Dominant left vertebral artery. Developmentally diminutive right vertebral artery demonstrates high-grade stenosis within the proximal V3 segment on image 286 secondary to atherosclerotic plaque. Fenestrated basilar artery demonstrates areas of moderate stenosis at the level of the fenestration. Moderate multifocal stenoses of the posterior cerebral arteries bilaterally. No aneurysm or dissection. No proximal branch occlusion identified. No pneumothorax. Unremarkable soft tissues. Degenerative changes of the cervical spine. IMPRESSION: 1. Age-indeterminate 1.5 cm left cerebellar lacunar infarct. 2. No acute or subacute territorial infarct. 3. Atherosclerosis with high grade stenosis of the bilateral proximal cervical and supraclinoid segments of the internal carotid arteries. 4. High-grade stenoses of the V3 segment right vertebral artery with additional multifocal areas of moderate cerebral vascular stenoses as above. ACT 112: Negative or not required by law. The above report was generated using voice recognition software. It may contain grammatical, syntax or spelling errors. Electronically signed by: Morgan Islas M.D. 09/12/2023 11:56 AM Discharge Plan Visit Data Chief Complaint: TIA Symptoms Stated Complaint: PRE STROKE, DIZZY ED Provider: Puneet Irvin Discharge Problem: Dizziness, Ataxia, Bilateral carotid artery disease, Cerebrovascular disease Patient Disposition: Being Evaluated by Hospitalist Forms Stand Alone Forms: [facility] Prescriptions Prescriptions: No Action multivitamin Tablet 1 tab PO QAM atorvastatin 40 mg Tablet 40 mg PO DAILY aspirin [Aspir-81] 81 mg Tablet,Delayed Release (Dr/Ec) 81 mg PO DAILY lisinopril 10 mg Tablet 10 mg PO DAILY grape seed extract 50 mg Capsule 0 mg PO DAILY lisinopril-hydrochlorothiazide 10-12.5 mg Tablet 0.5 tab PO DAILY metoprolol tartrate 25 mg Tablet 25 mg PO BID Calcium 600 + D(3) 600 mg calcium- 200 unit Capsule 1 cap PO DAILY omega 6-vjm-nqq-fish oil [Fish Oil] 1,000 mg (120 mg-180 mg) Capsule 1 cap PO DAILY cholecalciferol (vitamin D3) 2,000 unit Tablet,Chewable 2,000 unit PO DAILY Referrals Referrals: PCP,NO [Physician] - Discharge Problem: Bilateral carotid artery disease Qualifiers: Carotid artery disease type: unspecified Qualified Code(s): I77.9 - Disorder of arteries and arterioles, unspecified
[2023-09-12 10:38] LABS: Basophils # (auto) 0.07 K/uL (0.00-0.20); Eosinophils % (auto) 2.9 %; Hematocrit (blood only) 36.4 % (42.0-52.0); Hemoglobin 12.3 g/dl (14.0-18.0); Immature Granulocytes # (auto) 0.01 K/uL (0.01-0.20); Immature Granulocytes % (auto) 0.1 %; Lymphocytes # (auto) 0.89 K/uL (1.20-3.40); Mean Corpuscular Hemoglobin 30.8 pg (25.0-34.0); Mean Corpuscular Hgb Conc 33.8 g/dL (32.0-36.0); Mean Corpuscular Volume 91.2 fL (80.0-100.0); Mean Platelet Volume 9.8 fL (9.4-12.4); Monocytes # (auto) 0.84 K/uL (0.11-0.59); Monocytes % (auto) 12.3 %; Neutrophils # (auto) 4.82 K/uL (1.40-6.50); Neutrophils % (auto) 70.7 %; Platelet Count 263 K/uL (130-400); RDW Standard Deviation 43.1 fL (36.4-46.3); Red Blood Count 3.99 M/uL (4.70-6.10); White Blood Count 6.83 K/ul (4.8-10.8)
[2023-09-12 10:51] LABS: Albumin Globulin Ratio 1.4 (0.9-2); Albumin Level 4.1 gm/dl (3.4-5.0); Bilirubin,Total 0.8 mg/dl (0.2-1.0); Calcium 9.8 mg/dl (8.6-10.3); Creatinine Clr Calc Pharmacy 61.2 ml/min; Est GFR (African American) 93.2 ml/min; Est GFR (Non-African American) 80.4 ml/min; Magnesium 2.3 mg/dl (1.7-2.4); Potassium 4.2 mmol/L (3.5-5.1); Total Protein 7.1 gm/dl (6.0-8.3)
[2023-09-12 10:56] LABS: Partial Thromboplastin Time 27 Seconds (21-31); Prothrombin Time 11.2 Seconds (9.0-12.0)
[2023-09-12] MEDS: OPTIRAY 320 125ml IV ONE (11:03)
[2023-09-12] MEDS: ONDANSETRON INJ 2 MG/ML 2 ML VIAL ONE (11:19)
[2023-09-12] MEDS: ONDANSETRON INJ 2 MG/ML 2 ML VIAL IV STA (11:19)
--- NOTE | 2023-09-12 11:34 | XRay Report ---
XR chest 1V portable HISTORY: 78 years-old Male neuro deficit, acute stroke suspected acute strokelike symptoms COMPARISON: 01/01/2014 TECHNIQUE: AP view of the chest FINDINGS: Cardiac silhouette is mildly enlarged. Median sternotomy. No pneumothorax or pleural effusion. Subseg mental right basilar airspace opacities. Bones appear grossly intact. IMPRESSION: 1. Mild patchy right basilar opacities may represent atelectasis versus pneumonia. 2. Cardiomegaly without pulmonary edema. ACT 112: Negative or not required by law. The above report was generated using voice recognition software. It may contain grammatical, syntax o r spelling errors. Electronically signed by: Morgan Islas M.D. 09/12/2023 11:32 AM
--- NOTE | 2023-09-12 11:59 | CT Scan Report ---
CT angio head w con, CT angio neck with con, CT head/brain wo con CLINICAL HISTORY: 78 years-old Male with neuro deficit, acute stroke suspected. Acute stroke like symptoms COMPARISON STUDY: None TECHNIQUE: Unenhanced axial CT scan of the brain is performed. Subsequently, following the IV adminis tration of 119 cc of Optiray, CT angiogram of the head and neck was performed from the aortic arch to the skull apex. Images are reviewed in the axial, sagittal, and coronal planes. 3-D MIPS images are created and assessed. IV contrast was administered without complication. All measurements were obtain ed according to NASCET criteria. A dose lowering technique was utilized adhering to the principles of ALARA. CT DOSE: 1008.57 mGy.cm FINDINGS: CT BRAIN: There is no acute intracranial hemorrhage, midline shift, hydrocephalus, intracranial mass, territori al ischemia or abnormal extra-axial collections. Involutional changes with chronic microvascular isch emic disease. There is a linear 1.5 cm hypodense focus within the left mid posterior aspect of the ce rebellum on image 6 series 3. No abnormal intra-axial or extra-axial enhancement. Mastoid air cells and middle ear cavities are clear. No calvarial fracture. Paranasal sinuses are clear. CT ANGIOGRAM OF THE HEAD AND NECK: Atherosclerosis of the thoracic aorta. Median sternotomy. Patency of the innominate and image subclav holley arteries. The common carotid arteries are patent. There is severe atherosclerosis of the carotid bulbs and proximal cervical segments of the internal carotid arteries. Motion degradation limits the study. 80% stenosis of the proximal cervical segment right ICA with 70% stenosis on the left. Additio nal areas of high-grade stenosis noted within the bilateral supraclinoid segments of the internal car otid arteries secondary to extensive atherosclerosis. Mild multifocal stenoses of the bilateral middl e cerebral arteries. The anterior cerebral arteries are patent. Dominant left vertebral artery. Developmentally diminutive right vertebral artery demonstrates high-g rade stenosis within the proximal V3 segment on image 286 secondary to atherosclerotic plaque. Fenest rated basilar artery demonstrates areas of moderate stenosis at the level of the fenestration. Modera te multifocal stenoses of the posterior cerebral arteries bilaterally. No aneurysm or dissection. No proximal branch occlusion identified. No pneumothorax. Unremarkable soft tissues. Degenerative changes of the cervical spine. IMPRESSION: 1. Age-indeterminate 1.5 cm left cerebellar lacunar infarct. 2. No acute or subacute territorial infarct. 3. Atherosclerosis with high grade stenosis of the bilateral proximal cervical and supraclinoid segme nts of the internal carotid arteries. 4. High-grade stenoses of the V3 segment right vertebral artery with additional multifocal areas of m oderate cerebral vascular stenoses as above. ACT 112: Negative or not required by law. The above report was generated using voice recognition software. It may contain grammatical, syntax o r spelling errors. Electronically signed by: Morgan Islas M.D. 09/12/2023 11:56 AM
[2023-09-12 12:51] LABS: Appearance Urine Clear (Clear); Bacteria Urine Automated None Seen (None Seen); Bilirubin Urine Negative (Negative); Blood Urine Negative (Negative); Cast Urine Automated 0-2 /lpf (0-2); Color Urine Yellow; Epithelial Cell Urine Auto 0-2 /hpf (0-2); Glucose Urine UA Negative (Negative); Ketones Urine 1+ (Negative); Leukocyte Esterase Urine Negative (Negative); Nitrite Urine Negative (Negative); Protein Urine Trace (Negative); RBC Urine Automated 0-2 /hpf (0-2); Specific Gravity Urine > 1.045 (1.000-1.030); Urobilinogen Urine Negative (Negative); WBC Urine Automated 0-5 /hpf (0-5); pH Urine 5.5 (4.5-7.5)
[2023-09-12] MEDS: ASPIRIN CHEW 324 MG PO STA (13:10)
[2023-09-12] MEDS ORDERED: DEXTROSE 50% 50 ML SYRINGE IV PRN (13:26)
[2023-09-12] MEDS ORDERED: CARBOHYDRATES FOR HYPOGLYCEMIA PO PRN (13:26)
[2023-09-12] MEDS ORDERED: GLUCOSE 40% GEL 15 GM TUBE PO PRN (13:26)
[2023-09-12] MEDS ORDERED: GLUCOSE 10 TAB/TUBE PO PRN (13:26)
[2023-09-12] MEDS ORDERED: GLUCAGON FOR INJ 1 MG VIAL SQ PRN (13:26)
[2023-09-12] MEDS ORDERED: ACETAMINOPHEN 325 MG TAB PO PRN (13:26)
[2023-09-12] MEDS ORDERED: ONDANSETRON INJ 2 MG/ML 2 ML VIAL IV PRN (13:26)
[2023-09-12] MEDS ORDERED: PHARMACY GLYCEMIC MGMT CONSULT PRN (13:26)
--- NOTE | 2023-09-12 13:28 | History & Physical Report ---
Date of Service September 12, 2023 Assessment & Plan (1) Cerebrovascular disease: Plan 78-year-old gentleman with PMH of T2DM [diet-controlled, outpatient A1c of 6.2, 6.4, 6.4 from [id number]], HTN, CAD status post CABG 2012, prostate cancer presented to the ED 09/11 with complaint of right hearing loss, ataxia, vertigo. He is being managed for the following: Age indeterminant left cerebellar lacunar infarct Patient coming in with right hearing loss/ataxia/vertigo of abrupt onset since last evening, about the same/little worse per patient. Admitting CT head/CTA head and neck 1. Age-indeterminate 1.5 cm left cerebellar lacunar infarct. 2. No acute or subacute territorial infarct. 3. Atherosclerosis with high grade stenosis of the bilateral proximal cervical and supraclinoid segments of the internal carotid arteries. 4. High-grade stenoses of the V3 segment right vertebral artery with additional multifocal areas of moderate cerebral vascular stenoses as above. Patient without focal weakness, case discussed with the neurology on-call, utilize aspirin currently no Plavix and heparin drip [for A-fib] until MRI evaluation. Get echo, continue telemetry monitoring, neurochecks every 2 hours, A1c, lipid profile, permissive hypertension today.Stat MRI brain sent. Fall precaution. Await further neurology evaluation and recommendation. A-fib: New diagnosis, patient and his denies prior diagnosis of A-fib. Sent TSH, telemetry monitoring, resume home metoprolol, cardiology consult. Will start heparin drip once neurology clears. Further recommendation from cardiology. Other chronic medical conditions: HTN: Hold blood pressure medication to allow for permissive hypertension today, will continue metoprolol from evening for due to afib. Hyperlipidemia: Lipid profile in a.m., continue statin. Diabetes: Get updated A1c in a.m., diet control, continue to monitor. DVT prophylaxis: Heparin subcu Until anticoagulation decided Full code History of Present Illness Chief Complaint: rt ear hearing loss, ataxia, vertigo Primary Care Provider: Latonya Irving DO 78-year-old gentleman with PMH of T2DM [diet-controlled, outpatient A1c of 6.2, 6.4, 6.4 from [id number]], HTN, CAD status post CABG 2012, prostate cancer presented to the ED 09/11 with complaint of right hearing loss, ataxia, vertigo. 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 He slept through it and this morning when he woke up, he ate felt his symptoms seem to get li'l worse/still about the same, he was nauseous/had gait instability/right hearing loss/dizziness. Patient denies focal weakness/numbness or tingling. Patient denies fever/sore throat/cough/chest pain/palpitation/belly pain/acute changes in his appetite/bowel/bladder habits. Patient denies history of irregular heart rhythm, denies history of heart failure/blood clot/stent anywhere in the body/stroke. Patient denies smoking, uses alcohol on rare occasions, denies recreational drug use. Full code Home medications were reviewed in detail with patient and his at bedside. Plan of care were discussed in detail with patient and his at bedside. They voiced understanding and were agreeable to plan of care. Allergies Allergy/AdvReac Type Severity Reaction Status Date / Time No Known Allergies Allergy Unverified 06/09/19 09:54 Home Medications Medication Instructions Recorded Confirmed Type aspirin 81 mg tablet,delayed 81 mg PO DAILY 06/09/19 06/09/19 History release (Aspir-) atorvastatin 40 mg tablet 40 mg PO DAILY 06/09/19 06/09/19 History calcium carbonate 600 mg-vitamin 1 cap PO DAILY 06/09/19 06/09/19 History D3 5 mcg (200 unit) capsule (Calcium 600 + D(3)) cholecalciferol (vitamin D3) 50 2,000 unit PO DAILY 06/09/19 06/09/19 History mcg (2,000 unit) chewable tablet grape seed extract 50 mg capsule 0 mg PO DAILY 06/09/19 06/09/19 History lisinopril 10 mg tablet 10 mg PO DAILY 06/09/19 06/09/19 History lisinopril 10 0.5 tab PO DAILY 06/09/19 06/09/19 History mg-hydrochlorothiazide 12.5 mg tablet metoprolol tartrate 25 mg tablet 25 mg PO BID 06/09/19 06/09/19 History multivitamin 1 tab PO QAM 06/09/19 06/09/19 History omega 4-pfm-kkv-fish oil 1,000 mg 1 cap PO DAILY 06/09/19 06/09/19 History (120 mg-180 mg) capsule (Fish Oil) Past Med/Surg History Problem List (Updated 09/12/23 @ 13:04 by Puneet Irvin DO) Cerebrovascular disease (Acute) Bilateral carotid artery disease (Acute) Ataxia (Acute) Dizziness (Acute) HTN (hypertension) (Acute) Osteoporosis (Chronic) Fracture of two ribs (Acute) Surgical History S/P CABG x 3 Family History Other Family history non-contributory Social History Smoking Status: Never smoker Tobacco Type: Pipe Preferred Language: Angolan Feels Safe at Home: Yes Review of Systems Review of Systems: Negative otherwise mentioned in HPI. Physical Exam Physical Exam: GENERAL: Alert and oriented x3. NAD, on RA. HEENT: No pallor, no icterus. Pupils equal, round and reactive to light. Oral mucosa moist. Rt ear decreased hearing (general observation). NECK: No JVD, no neck masses. HEART: S1 and S2 heard. irregular rate and rhythm. No murmur, no gallop. RESPIRATORY SYSTEM: Normal AP diameter. No accessory muscle use. No wheezing, no crackles. ABDOMEN: Soft, bowel sounds present, nontender, no distention. CENTRAL NERVOUS SYSTEM: No facial droop. Speech is clear. Obeys simple commands. Moves extremities. Strength 5/5 bl and equal. EXTREMITIES: No edema, no erythema seen. Results & Data Results & Data Vital Signs (Past 12 Hours) Vital Signs Temp Pulse Resp BP Pulse Ox O2 Del Method 09/12/23 13:00 70 20 149/67 H 97 09/12/23 12:36 69 20 93 09/12/23 12:09 171/94 H 09/12/23 12:09 74 15 96 09/12/23 12:03 62 18 91 09/12/23 11:30 67 23 91 09/12/23 11:27 70 17 92 09/12/23 11:26 148/54 H 09/12/23 10:48 68 13 98 09/12/23 10:36 59 L 17 95 09/12/23 10:09 66 25 H 93 09/12/23 10:08 70 09/12/23 09:42 36.6 C 75 20 155/85 H 98 Room Air
[2023-09-12] MEDS: GADOBUTROL 7.5ML VIAL IV ONE (14:38)
--- NOTE | 2023-09-12 14:49 | Communication Note ---
Date of Service: September 12, 2023 I was contacted by hospitalist about this patient fracture an 78-year-old male patient presenting with dizziness who was found to have a left cerebellar str tacos. CTA of the head and neck shows significant bilateral carotid stenosis in addition to vertebral stenosis. With question if this patient needs to be transferred for any urgent intervention. Upon reviewing the patient was noted to have atrial fibrillation. Recommended: MRI of the brain. The consideration of anticoagulation in this patient's case. Continue steroid telemetry monitoring to rule out tacky or bradycardia arrhythmias Is currently maintained on aspirin and Plavix
--- NOTE | 2023-09-12 14:53 | Electrocardiogram Report ---
Test Reason : Blood Pressure : / mmHG Vent. Rate : 086 BPM Atrial Rate : 000 BPM P-R Int : 000 ms QRS Dur : 108 ms QT Int : 390 ms P-R-T Axes : 000 -09 063 degrees QTc Int : 466 ms Atrial fibrillation Poor R wave progression, consider anterior TN vs. lead placement vs. LVH Abnormal ECG When compared with ECG of 09-JUN-2019 09:24, Atrial fibrillation has replaced Sinus rhythm QRS duration has increased Confirmed by Puneet Mtz ([id number]) on 09/12/2023 2:53:44 PM Referred By: REFERRED SELF Confirmed By:Puneet Mtz
--- NOTE | 2023-09-12 15:41 | Magnetic Resonance Report ---
MR brain wo/w con HISTORY: 78 years-old Male stroke eval acute dizziness with age-indeterminate left cerebellar lacuna r infarct seen by head CT COMPARISON: Head CT of same day TECHNIQUE: Multiplanar multisequence MRI the brain was obtained with and without IV contrast FINDINGS: No restricted diffusion to suggest acute or subacute infarct. Chronic left cerebellar lacunar infarct s. Involutional changes with moderate T2/FLAIR hyperintense foci throughout the white matter. Cerebra l venous sinuses and major arterial flow voids appear patent. Skull, orbits and soft tissues are unre markable. Cerebral venous sinuses are. No abnormal enhancement. IMPRESSION: 1. No acute intracranial abnormality. No acute or subacute infarct. 2. Involutional changes with moderate chronic microvascular ischemic disease. 3. Chronic left cerebellar lacunar infarcts. 4. No abnormal enhancement. ACT 112: Negative or not required by law. The above report was generated using voice recognition software. It may contain grammatical, syntax o r spelling errors. Electronically signed by: Morgan Islas M.D. 09/12/2023 3:39 PM
[2023-09-12] MEDS: INSULIN ASPART PER UNIT CHARGE SC SCH ×2 (16:55→20:20)
[2023-09-12] MEDS: ASPIRIN 81 MG ECTAB PO SCH (17:37)
[2023-09-12 18:39] LABS: ANTI-Xa, UFH(UnfractionatedHep < 0.10 IU/ml (0.3-0.7)
[2023-09-12] MEDS: Heparin IV Adult Wt-Based Low-Dose *NO* INITIAL Bolus Protocol IV SCH (19:04)
[2023-09-12] MEDS: HEPARIN SODIUM/DEXTROSE 25,000 UNITS/500 ML BAG IV SCH (19:12)
[2023-09-12] MEDS: METOPROLOL TARTRATE 25 MG TAB PO SCH (20:21)
[2023-09-12] MEDS: LANTUS PER UNIT CHARGE SC ONE (21:31)
[2023-09-13] MEDS: INSULIN ASPART PER UNIT CHARGE SC ONE (04:24)
[2023-09-13 06:11] LABS: Hematocrit (blood only) 35.9 % (42.0-52.0); Hemoglobin 12.1 g/dl (14.0-18.0); Mean Corpuscular Hemoglobin 30.5 pg (25.0-34.0); Mean Corpuscular Hgb Conc 33.7 g/dL (32.0-36.0); Mean Corpuscular Volume 90.4 fL (80.0-100.0); Mean Platelet Volume 9.7 fL (9.4-12.4); Platelet Count 244 K/uL (130-400); RDW Coefficient of Variation 12.8 % (11.5-14.5); RDW Standard Deviation 42.5 fL (36.4-46.3); Red Blood Count 3.97 M/uL (4.70-6.10); White Blood Count 9.14 K/ul (4.8-10.8)
[2023-09-13 06:23] LABS: BUN Creatinine Ratio 23.1 (10-20); Calcium 9.1 mg/dl (8.6-10.3); Chol HDL Ratio 1.8 (0-5); Creatinine Clr Calc Pharmacy 60.5 ml/min; Est GFR (African American) 91.9 ml/min; Est GFR (Non-African American) 79.3 ml/min; Magnesium 2.4 mg/dl (1.7-2.4); Phosphorus 3.3 mg/dl (2.5-4.9)
[2023-09-13 06:35] LABS: ANTI-Xa, UFH(UnfractionatedHep 0.33 IU/ml (0.3-0.7)
[2023-09-13 07:33] LABS: Estimated Average Glucose 137 mg/dl; Hemoglobin A1C 6.4 % (4.5-5.6)
--- NOTE | 2023-09-13 08:43 | Cardiology Consultation ---
Date of Consultation September 13, 2023 Assessment & Plan (1) Cerebrovascular disease: (2) Bilateral carotid artery disease: (3) Ataxia: (4) Dizziness: (5) HTN (hypertension): (6) History of coronary artery bypass graft x 3: Plan Assessment: 78 year-old male presented to the ED with complaints of ataxia, and dizziness, concern for possible neurological event. Cardiology requested to evaluate patient for concerns of possible Atrial fibrillation. Plan: 1. Cerebrovascular disease 2. bilateral carotid artery disease 3. Ataxia 4. Dizziness - CT of head and Brain MRI negative for an acute infarct or process. -CT does shows advanced carotid disease. Vascular surgery is on consult and will want to see patient to following closely OP. While patient's symptoms are likely multi-factorial this does give concern and should be followed closely. -Fasting lipid panel this am is stable. Continue ASA 81mg and Statin with Atorvastatin 40mg Daily. -Admission EKG reviewed and does not demonstrate A-fib, but rather SR with PAC's. Additional review of cardiac monitor shows predominant SR with PAC's and brief episode of Paroxysmal Atrial tachycardia, but no evidence of A-fib -May discontinue Heparin if ok with neurology -Echocardiogram demonstrates normal LVEF, no significant valvular disease, and no evidence of an interatrial shunt, no PFO -Recommend that when patient is appropriate for discharge by primary team that he be discharged with a ZIO monitor for additional 2 week monitoring for any incidence of A-fib. 5. History of CABG: -Remote history dating back to 2013. -EKG shows no acute ischemic concerns, patient is asymptomatic. -Vital signs stable. -Continue Metoprolol tartrate, Atorvastatin, and ASA at this time. -Echocardiogram with no acute findings. Case has been discussed with Dr. Garcia. Further recommendations regarding plan of care as per his assessment. I spent a total of 40 minutes on the date of service in preparation, delivery, documentation of the care provided to the patient excluding any time spent in the performance of separately billed services. SANDRA Arreola [facility] Cardiology [facility] Supervising Physician Co-Signing Physician Notes Patient was seen and personally examined. Chart records reviewed. Full assessment and plan as outlined by advanced provider as above. Care and management discussed in detail and personally endorsed 78-year-old male with acute hearing loss and dizziness. Concerns raised regarding possible atrial fibrillation though review of EKG and telemetry reveals no atrial fibrillation but sinus rhythm with atrial ectopy. Plan as above would discontinue IV heparin. Outpatient event monitor ENT evaluation important given acute hearing loss question need for high-dose corticosteroid History of Present Illness Reason for Consultation: New A-fib Requesting Physician: Leann hospitalist Attending Physician: Yoel Garduno MD History of Present Illness HPI: patient is a 78 year old male with PMHx as noted below that presented to the ED on September 11 with complaints of right hearing loss, ataxia and vertigo. Initial CT head is negative for a infarct; however, did demonstrates High grade stenosis in the right vertebral artery and addition to the cerebral vascular stenosis. PMHx: CAD s/p CABG 2013 ([facility]) cabg 01/09 CAMERON to LAD SV top P< SV tp RCA DM type 2 HTN HLD Prostate CA Acute CT head/CTA head and neck as follows: 1. Age-indeterminate 1.5 cm left cerebellar lacunar infarct. 2. No acute or subacute territorial infarct. 3. Atherosclerosis with high grade stenosis of the bilateral proximal cervical and supraclinoid segments of the internal carotid arteries. 4. High-grade stenoses of the V3 segment right vertebral artery with additional multifocal areas of moderate cerebral vascular stenoses as above. MRI Brain 09/12/23 IMPRESSION: 1. No acute intracranial abnormality. No acute or subacute infarct. 2. Involutional changes with moderate chronic microvascular ischemic disease. 3. Chronic left cerebellar lacunar infarcts. 4. No abnormal enhancement. EKG on admission was read by primary team as A-fib with Poor R wave progression Rate 86 bpm and therefore cardiology was asked to see this patient. Trop negative x 1 chest xray 09/12/2023 IMPRESSION: 1. Mild patchy right basilar opacities may represent atelectasis versus pneumonia. 2. Cardiomegaly without pulmonary edema. Review of admission EKG personally demonstrates SR with PAC's Review of telemetry demonstrates SR with PAC's Rtes 60-90's with no acute events overnight. patient is resting in bed without complaint. Allergies Allergy/AdvReac Type Severity Reaction Status Date / Time General Anesthesia AdvReac Severe Nausea Uncoded 09/12/23 15:09 Home Medications Medication Instructions Recorded Confirmed Type aspirin 81 mg tablet,delayed 81 mg PO DAILY 06/09/19 09/12/23 History release (Aspir-) atorvastatin 40 mg tablet 40 mg PO DAILY 06/09/19 09/12/23 History calcium carbonate 600 mg-vitamin 1 cap PO BID 06/09/19 09/12/23 History D3 5 mcg (200 unit) capsule (Calcium 600 + D(3)) grape seed extract 50 mg capsule 50 mg PO DAILY 06/09/19 09/12/23 History lisinopril 10 mg tablet 0 mg PO DAILY 06/09/19 09/12/23 History lisinopril 10 0 tab PO DAILY 06/09/19 09/12/23 History mg-hydrochlorothiazide 12.5 mg tablet metoprolol tartrate 25 mg tablet 25 mg PO BID 06/09/19 09/12/23 History multivitamin 1 tab PO QAM 06/09/19 09/12/23 History omega 8-imk-nzn-fish oil 1,000 mg 1 cap PO DAILY 06/09/19 09/12/23 History (120 mg-180 mg) capsule (Fish Oil) Patient History Surgical History (Updated 09/13/23 @ 11:07 by SANDRA Arreola) S/P CABG x 3 Family History Other Family history non-contributory Social History Smoking Status: Never smoker Tobacco Type: Pipe Hx Alcohol Use: No Hx Substance Use: No Preferred Language: Guamanian Communication Ability: Effective Hay Stacker Required: No Beliefs That Will Affect Care: None Current Living Situation: Spouse Other Information That Helps Us Care for You: No Feels Safe at Home: Yes Safety Concerns: Feels Safe At This Time Assistive Devices: Walker Review of Systems Review of Systems: All systems reviewed & are unremarkable except as noted in HPI & below Physical Exam Constitutional: well developed and well nourished; no acute distress and not ill appearing Neck: normal visual inspection and trachea midline Respiratory: normal respiratory effort, lungs clear to auscultation normal respiratory effort; no cough Cardiovascular: Rate/Rhythm: regular rate and regular rhythm Heart Sounds: normal S1, normal S2 and + murmur (+ II/ systolic) Vessels: dorsalis pedis pulses present; no JVD Extremities: no edema Skin: no rashes, warm and dry Psychiatric: A+Ox3, euthymic affect Results & Data Vital Signs (Past 12 Hours) Vital Signs Temp Pulse Pulse Resp BP Pulse Ox O2 Del Method 09/13/23 07:30 36.6 C 77 18 142/68 H 99 Room Air 09/13/23 03:12 36.6 C 67 20 115/60 96 Room Air 09/13/23 00:30 66 09/12/23 22:53 36.7 C 67 18 115/63 94 Room Air Laboratory Results Lipids 09/13/23 Range/Units 05:50 Triglycerides 51 (0-150) mg/dl Cholesterol 127 (0-200) mg/dl HDL Cholesterol 69 mg/dl Cholesterol/HDL Ratio 1.8 (0-5) CBC 09/13/23 Range/Units 05:50 WBC 9.14 (4.8-10.8) K/ul RBC 3.97 L (4.70-6.10) M/uL Hgb 12.1 L (14.0-18.0) g/dl Hct 35.9 L (42.0-52.0) % Plt Count 244 (130-400) K/uL Comprehensive Metabolic Panel 09/13/23 Range/Units 05:50 Sodium 137 (136-145) mmol/L Potassium 4.0 (3.5-5.1) mmol/L Chloride 105 (98-107) mmol/L Carbon Dioxide 26 (21-32) mmol/L BUN 21 (6-23) mg/dl Creatinine 0.91 (0.6-1.4) mg/dl Glucose 98 (70-99(Fasting)) mg/dl Calcium 9.1 (8.6-10.3) mg/dl Intake and Output 09/12/23 09/13/23 09/13/23 22:59 06:59 14:59 Intake Total 240 / 240 189.067 / 189.067 Output Total 175 / 875 700 / 875 Balance -175 / -635 -460 / -635 189.067 / 189.067 Intake: IV 189.067 / 189.067 Heparin Sodium/Dextrose 25,000 189.067 / 189.067 units In 500 ml @ 800 UNITS/HR 16 mls/hr IV .Q24H [facility] Rx#: [id number] Oral 240 / 240 Output: Urine 175 / 875 700 / 875 Other: Weight 72.5 kg 72 kg Weight Measurement Method Chair Scale Built in [facility] Diagnostic Findings Echo Today: Mild concentric LVH LV wall motion is normal LVEF 60-65% left atrium normal size Grade I diastolic dysfunction Moderate Aortic valve sclerosis without stenosis Mild TR interatrial septum is intact with no evidence of an atrial septal defect Injection of contrast documented no interatrial shunt. (2) Bilateral carotid artery disease Carotid artery disease type: unspecified Qualified Code(s): I77.9 - Disorder of arteries and arterioles, unspecified (5) HTN (hypertension) Hypertension type: essential hypertension Qualified Code(s): I10 - Essential (primary) hypertension
[2023-09-13] MEDS: OMEGA-3 (PURIFIED FISH OIL) 1 GM CAP PO SCH (09:23)
[2023-09-13] MEDS: ATORVASTATIN 40 MG TAB PO SCH (09:23)
--- NOTE | 2023-09-13 09:56 | Consultation ---
Date of Consultation September 13, 2023 Assessment & Plan (1) Bilateral carotid artery disease: Pt with significant BL COLIN, but without lateralizing sx to indicate TIA/CVA. At this time, recommend pt be eval in office as outpt to discuss further. R vertebral art is chronically small and does not require intervention. Office will call to schedule. Pt agreeable to this plan. Carotid artery disease type: unspecified Qualified Code(s): I77.9 - Disorder of arteries and arterioles, unspecified History of Present Illness Reason for Consultation: vertebral art stenosis Attending Physician: Yoel Garduno MD History of Present Illness 78 yo m with hxo f HTN, prostate ca, hyperlipidemia, CAD s/p CABG, admitted with new onset A fib and possible TIA after sx of R ear hearing loss and vertigo with nausea, seen in consultation today for vertebral artey stenosis noted on imaging. Pt states no prior CVA or TIA in past, but has had vertigo once or twice before which lasted a few hrs. States R hearing loss and vertigo began while driving home, but persisted and he began vomiting as well when he tried to move around. Denies amaurosis, unilateral extremity weakness numbness or tingling, difficulty speaking or slurred speech, confusion, PAREKH. States his vertigo sx are much improved since arrival at [facility], however, his R hearing loss is persistent. Denies hx of irregular heartbeat in past. Denies fever, recent illness, chest pain, SOB, palpitations, abd pain, claudication, rest pain, nonhealing ulcers, other complaints. MRI imaging demonstrates chronic L cerebellar infarct, nothing acute. CTA imaging demonstrates a diminutive R vertebral art with stenosis, BL carotid stenosis 70-80%, as well as intracranial stenoses. Allergies Allergy/AdvReac Type Severity Reaction Status Date / Time General Anesthesia AdvReac Severe Nausea Uncoded 09/12/23 15:09 Home Medications Medication Instructions Recorded Confirmed Type aspirin 81 mg tablet,delayed 81 mg PO DAILY 06/09/19 09/12/23 History release (Aspir-) atorvastatin 40 mg tablet 40 mg PO DAILY 06/09/19 09/12/23 History calcium carbonate 600 mg-vitamin 1 cap PO BID 06/09/19 09/12/23 History D3 5 mcg (200 unit) capsule (Calcium 600 + D(3)) grape seed extract 50 mg capsule 50 mg PO DAILY 06/09/19 09/12/23 History lisinopril 10 mg tablet 0 mg PO DAILY 06/09/19 09/12/23 History lisinopril 10 0 tab PO DAILY 06/09/19 09/12/23 History mg-hydrochlorothiazide 12.5 mg tablet metoprolol tartrate 25 mg tablet 25 mg PO BID 06/09/19 09/12/23 History multivitamin 1 tab PO QAM 06/09/19 09/12/23 History omega 5-qvw-dxa-fish oil 1,000 mg 1 cap PO DAILY 06/09/19 09/12/23 History (120 mg-180 mg) capsule (Fish Oil) Patient History Surgical History S/P CABG x 3 Family History Other Family history non-contributory Social History Smoking Status: Never smoker Tobacco Type: Pipe Hx Alcohol Use: No Hx Substance Use: No Preferred Language: [place] Verdean Communication Ability: Effective Elementary Educator Required: No Beliefs That Will Affect Care: None Current Living Situation: Spouse Feels Safe at Home: Yes Assistive Devices: Walker Review of Systems Review of Systems: All systems reviewed & are unremarkable except as noted in HPI & below Physical Exam Constitutional: WD/WN, vitals as above cooperative and comfortable; not in distress Neck: trachea midline Respiratory: normal respiratory effort, lungs clear to auscultation Auscultation: + diminished lung sounds Cardiovascular: Rate/Rhythm: + irregularly irregular Vessels: + carotid bruit, femoral pulses present, posterior tibial pulses present, dorsalis pedis pulses present and radial pulses present; + abnormal peripheral pulses Extremities: normal capillary refill Gastrointestinal (Abdomen): Inspection/Auscultation: abdomen normal to inspection and normal bowel sounds; abdomen not distended Percussion/Palpation: abdomen soft; abdomen nontender Musculoskeletal: no cyanosis or clubbing, extremities motor strength 5/5 Skin: no rashes, warm and dry Neurologic: moves all extremities and awake; no focal motor deficits and not confused Psychiatric: A+Ox3, euthymic affect Results & Data Vital Signs (Past 12 Hours) Vital Signs Temp Pulse Pulse Resp BP Pulse Ox O2 Del Method 09/13/23 07:30 36.6 C 77 18 142/68 H 99 Room Air 09/13/23 03:12 36.6 C 67 20 115/60 96 Room Air 09/13/23 00:30 66 09/12/23 22:53 36.7 C 67 18 115/63 94 Room Air
--- NOTE | 2023-09-13 11:41 | Pharmacy Report ---
Pharmacy Glycemic Short Note 2 - Date of Service September 13, 2023 - Glycemic Short BSG Results (Last 24 hours): 09/12/23 09/12/23 09/13/23 16:15 19:46 04:08 Glucose POC Glucose 119 H 159 H 99 09/13/23 09/13/23 09/13/23 05:50 07:52 11:05 Glucose 98 POC Glucose 120 H 107 H OUTPATIENT ANTIDIABETIC REGIMEN: * No antidiabetic meds as outpatient * HbA1c: 6.4% (09/13/23) ASSESSMENT: * 78 yo M admitted on 09/12/23 secondary to possible CVA. Pharmacy has been consulted to assist with inpatient glycemic management. Patient is prediabetic as an outpatient. Please refer to outpatient regimen and most recent HbA1c above. * Received 7 units of basal insulin last night and 1 unit correction. BSGs were 119-159 mg/dL. * Fasting BSG was 120 mg/dL this AM. Continue with previously ordered bolus regimen and goal range. Will add a scaled basal dose at HS to provide 5 units only if BSG is > 160 mg/dL. PLAN FOR INPATIENT GLYCEMIC CONTROL: * Basal insulin * Lantus 0-5 units SC HS (see EHR for more details) * Bolus insulin * NovoLog per scale ACHS or Q6hrs while NPO * Goal Range: Low 120 mg/dL - High 150 mg/dL * Correction Factor: 30 mg/dL/unit * Nutritional / Prandial insulin per carb ratio of 1 unit per 10 grams CHO consumed
--- NOTE | 2023-09-13 13:37 | Neurology Consultation ---
Date of Consultation September 13, 2023 Assessment & Plan (1) Bilateral carotid artery disease: Patient presents with vertigo and unilateral hearing loss concerning for peripheral vertigo. CTA does show asymptomatic bilateral carotid stenosis which should be further evaluated with vascular surgery as an outpatient. Given the risks and benefits with no stroke on MRI recommend aspirin and lipitor for stroke prevention. Otherwise agree with ENT for the hearing loss. Would consider lyme titer if otherwise not sent. -- Aspirin and statin for stroke prevention -- Vascular surgery and ENT referrals -- No further neurologic workup, can be discharged from our perspective. Telehealth Consultation Telehealth Information Telehealth Information: I performed this visit using a real-time telehealth connection between my location and the patients location ([facility]). After connecting through interactive tele-video, patient was identified by name and date of and/or wristband check.Patient (or authorized healthcare cash application representative) was informed that this was a telemedicine visit and it was being conducted confidentially over secure lines. My office door was closed and no one else was present in the room with me.Patient (or authorized healthcare cash application representative) provided consent to proceed with the visit, expressed an understanding of privacy and security of the telemedicine visit, and gave permission to have a hospital cash application representative in the room in order to assist with the visit and to conduct portions of the visit, as needed. I informed the patient (or authorized healthcare cash application representative) that I reviewed their record and presented the opportunity for them to ask any questions regarding the visit today. The patient agreed to participate. History of Present Illness Reason for Consultation: Vertigo Requesting Physician: Dr. Garduno Attending Physician: Yoel Garduno MD History of Present Illness Donavan Hanson is an 78 yo M presenting with vertigo and R ear hearing loss consistent with peripheral vertigo, now resolved. Given findings on his CTA he was otherwise admitted for vascular surgery evaluation. The patient feels back to normal currently and is anxious to be discharged. He undestands that his MRI was negative and that he will follow-up with vascular surgery as an outpatient. He has never had similar vertigo in the past and notes that the hearing is not quite back to normal in his R ear. Allergies Allergy/AdvReac Type Severity Reaction Status Date / Time General Anesthesia AdvReac Severe Nausea Uncoded 09/12/23 15:09 Home Medications Medication Instructions Recorded Confirmed Type aspirin 81 mg tablet,delayed 81 mg PO DAILY 06/09/19 09/12/23 History release (Aspir-) atorvastatin 40 mg tablet 40 mg PO DAILY 06/09/19 09/12/23 History calcium carbonate 600 mg-vitamin 1 cap PO BID 06/09/19 09/12/23 History D3 5 mcg (200 unit) capsule (Calcium 600 + D(3)) grape seed extract 50 mg capsule 50 mg PO DAILY 06/09/19 09/12/23 History lisinopril 10 mg tablet 0 mg PO DAILY 06/09/19 09/12/23 History lisinopril 10 0 tab PO DAILY 06/09/19 09/12/23 History mg-hydrochlorothiazide 12.5 mg tablet metoprolol tartrate 25 mg tablet 25 mg PO BID 06/09/19 09/12/23 History multivitamin 1 tab PO QAM 06/09/19 09/12/23 History omega 9-cil-mik-fish oil 1,000 mg 1 cap PO DAILY 06/09/19 09/12/23 History (120 mg-180 mg) capsule (Fish Oil) Patient History Surgical History (Updated 09/13/23 @ 11:07 by SANDRA Arreola) S/P CABG x 3 Family History Other Family history non-contributory Social History Smoking Status: Never smoker Tobacco Type: Pipe Hx Alcohol Use: No Hx Substance Use: No Preferred Language: Greek Communication Ability: Effective Correctional Lieutenant Required: No Beliefs That Will Affect Care: None Current Living Situation: Spouse Other Information That Helps Us Care for You: No Feels Safe at Home: Yes Safety Concerns: Feels Safe At This Time Assistive Devices: Walker Review of Systems +R ear hearing loss Physical Exam Neurological Examination: Mental Status: Awake and alert. Oriented to person, place, and time. Fluent. Comprehension intact. Affect appropriate. Cranial Nerves: II: Pupils 3/3 to 2/2, humphreys grossly intact. III/IV/: Versions intact without nystagmus, no gaze preference. V: Facial sensation symmetric to light touch VII: Facial expression symmetric VIII: Hearing intact to voice IX/X: Palate elevates symmetrically XI: Shoulder shrug symmetric XII: Tongue midline Motor: Strength was symmetric and antigravity throughout. Pronator drift was absent. There were no abnormal movements. No ataxia. Sensory: Sensation to light touch was intact. Results & Data Vital Signs (Past 12 Hours) Vital Signs Temp Pulse Pulse Resp BP Pulse Ox O2 Del Method 09/13/23 11:10 36.8 C 64 18 147/73 H 97 Room Air 09/13/23 08:00 66 09/13/23 07:30 36.6 C 77 18 142/68 H 99 Room Air 09/13/23 03:12 36.6 C 67 20 115/60 96 Room Air Diagnostic Findings Brain MRI 09/12/23 12:51 MR brain wo/w con HISTORY: 78 years-old Male stroke eval acute dizziness with age-indeterminate left cerebellar lacunar infarct seen by head CT COMPARISON: Head CT of same day TECHNIQUE: Multiplanar multisequence MRI the brain was obtained with and without IV contrast FINDINGS: No restricted diffusion to suggest acute or subacute infarct. Chronic left cerebellar lacunar infarcts. Involutional changes with moderate T2/FLAIR hyperintense foci throughout the white matter. Cerebral venous sinuses and major arterial flow voids appear patent. Skull, orbits and soft tissues are unr emarkable. Cerebral venous sinuses are. No abnormal enhancement. IMPRESSION: 1. No acute intracranial abnormality. No acute or subacute infarct. 2. Involutional changes with moderate chronic microvascular ischemic disease. 3. Chronic left cerebellar lacunar infarcts. 4. No abnormal enhancement. ACT 112: Negative or not required by law. The above report was generated using voice recognition software. It may contain grammatical, syntax or spelling errors. Electronically signed by: Morgan Islas M.D. 09/12/2023 3:39 PM (1) Bilateral carotid artery disease Carotid artery disease type: unspecified Qualified Code(s): I77.9 - Disorder of arteries and arterioles, unspecified
--- NOTE | 2023-09-13 14:56 | Hospitalist Progress Note ---
Date of Service September 13, 2023 Assessment & Plan (1) Cerebrovascular disease: Plan 78-year-old gentleman with PMH of T2DM [diet-controlled, outpatient A1c of 6.2, 6.4, 6.4 from [id number]], HTN, CAD status post CABG 2012, prostate cancer presented to the ED 09/11 with complaint of right hearing loss, ataxia, vertigo. He is being managed for the following: Strokelike symptoms Vertigo with unilateral hearing loss--likely peripheral vertigo Ataxia likely secondary to vertigo Chronic CVA --MRI Brain:No acute intracranial abnormality. No acute or subacute infarct. Involutional changes with moderate chronic microvascular ischemic disease. Chronic left cerebellar lacunar infarcts.. No abnormal enhancement. --Head/Neck CTA:Age-indeterminate 1.5 cm left cerebellar lacunar infarct. No acute or subacute territorial infarct. Atherosclerosis with high grade stenosis of the bilateral proximal cervical and supraclinoid segments of the internal carotid arteries. High-grade stenoses of the V3 segment right vertebral artery with additional multifocal areas of moderate cerebral vascular stenoses as above. --ECHO: Mild concentric LVH. EF 60 to 65%. Grade 1 diastolic dysfunction. Aortic valve sclerosis moderate, without significant stenosis. Mild tricuspid regurgitation. No ASD. No interatrial shunt. -- Lipid panel within normal limits, LDL 48 -- Continue aspirin, Lipitor No focal deficits on exam Meclizine as needed Evaluated by PT OT, speech Discussed with neurology Dr. Haley on 09/13/2023: Stable for discharge Advised to follow-up with ENT, neurology upon discharge Bilateral carotid artery stenosis Chronic CTA as above Appreciate vascular surgery input Continue aspirin, Lipitor Needs follow-up with vascular surgery as outpatient Atrial ectopy IV heparin discontinued Echo as above Appreciate cardiology input Need ZIO monitor as outpatient Other chronic medical conditions: HTN --continue home meds Hyperlipidemia--continue Lipitor Diabetes: Diet controlled --HbA1c 6.4 DVT Px: IV Heparin discontinued CODE STATUS Full code Admission and Anticipated Discharge Date Admission Date: September 12, 2023 Subjective Patient is seen and examined at bedside Right hearing impairment slowly improving Dizziness, ataxia resolved Discussed with neurology today Patient denies any chest pain, dyspnea, nausea, vomiting, abdominal pain Also updated patient's at bedside Review of Systems Review of Systems: All systems reviewed & are unremarkable except as noted in Subjective Physical Exam Physical Exam: Physical Exam: Vitals signs as noted above General Appearance:Moderately built and nourished, no apparent distress Head: normocephalic, Atraumatic Eyes: normal inspection, EOMI Neck: supple, Trachea midline Respiratory/Chest: Normal breath sounds, CTA, No accessory muscle use Cardiovascular: S1, S2, +murmur Abdomen/GI:Soft, Non tender, Bowel sounds present Extremities/Musculoskeletal:normal inspection, no edema Neurologic/Psych:AAOX3, grossly no focal neurological deficits, R hearing impairment Skin: normal color, warm Results & Data Results & Data Vital Signs (Past 12 Hours) Vital Signs Temp Pulse Pulse Resp BP Pulse Ox O2 Del Method 09/13/23 11:10 36.8 C 64 18 147/73 H 97 Room Air 09/13/23 08:00 66 09/13/23 07:30 36.6 C 77 18 142/68 H 99 Room Air 09/13/23 03:12 36.6 C 67 20 115/60 96 Room Air Laboratory Results Short CBC 09/13/23 Range/Units 05:50 WBC 9.14 (4.8-10.8) K/ul Hgb 12.1 L (14.0-18.0) g/dl Hct 35.9 L (42.0-52.0) % Plt Count 244 (130-400) K/uL BMP 09/13/23 05:50 Sodium 137 Potassium 4.0 Chloride 105 Carbon Dioxide 26 BUN 21 Creatinine 0.91 Glucose 98 Calcium 9.1
--- NOTE | 2023-09-13 15:44 | Discharge Summary ---
Date of Service September 13, 2023 Admission HPI Per Admitting Provider 78-year-old gentleman with PMH of T2DM [diet-controlled, outpatient A1c of 6.2, 6.4, 6.4 from [id number]], HTN, CAD status post CABG 2012, prostate cancer presented to the ED 09/11 with complaint of right hearing loss, ataxia, vertigo. 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 He slept through it and this morning when he woke up, he ate felt his symptoms seem to get li'l worse/still about the same, he was nauseous/had gait instability/right hearing loss/dizziness. Patient denies focal weakness/numbness or tingling. Patient denies fever/sore throat/cough/chest pain/palpitation/belly pain/acute changes in his appetite/bowel/bladder habits. Patient denies history of irregular heart rhythm, denies history of heart failure/blood clot/stent anywhere in the body/stroke. Patient denies smoking, uses alcohol on rare occasions, denies recreational drug use. Full code Home medications were reviewed in detail with patient and his at bedside. Plan of care were discussed in detail with patient and his at bedside. They voiced understanding and were agreeable to plan of care. Admission Exam Per Admitting Provider GENERAL: Alert and oriented x3. NAD, on RA. HEENT: No pallor, no icterus. Pupils equal, round and reactive to light. Oral mucosa moist. Rt ear decreased hearing (general observation). NECK: No JVD, no neck masses. HEART: S1 and S2 heard. irregular rate and rhythm. No murmur, no gallop. RESPIRATORY SYSTEM: Normal AP diameter. No accessory muscle use. No wheezing, no crackles. ABDOMEN: Soft, bowel sounds present, nontender, no distention. CENTRAL NERVOUS SYSTEM: No facial droop. Speech is clear. Obeys simple commands. Moves extremities. Strength 5/5 bl and equal. EXTREMITIES: No edema, no erythema seen. Principal Diagnosis Bilateral carotid artery disease Vertigo and unilateral hearing loss Atrial ectopy Chronic left cerebellar lacunar infarcts Discharge Data Allergies Allergy/AdvReac Type Severity Reaction Status Date / Time General Anesthesia AdvReac Severe Nausea Uncoded 09/12/23 15:09 Consultations 09/12/23 12:41 ED Decision to Admit Stat 09/12/23 12:51 Consult Neurology Routine 09/12/23 13:12 Consult Cardiology Routine 09/13/23 08:44 Consult Vascular Surgery Routine Procedures Performed Laboratory Results WBC 9.14 K/ul (4.8-10.8) 09/13/23 05:50 RBC 3.97 M/uL (4.70-6.10) L 09/13/23 05:50 Hgb 12.1 g/dl (14.0-18.0) L 09/13/23 05:50 Hct 35.9 % (42.0-52.0) L 09/13/23 05:50 MCV 90.4 fL (80.0-100.0) 09/13/23 05:50 MCH 30.5 pg (25.0-34.0) 09/13/23 05:50 MCHC 33.7 g/dL (32.0-36.0) 09/13/23 05:50 RDW Std Deviation 42.5 fL (36.4-46.3) 09/13/23 05:50 RDW Coeff of Merrill 12.8 % (11.5-14.5) 09/13/23 05:50 Plt Count 244 K/uL (130-400) 09/13/23 05:50 MPV 9.7 fL (9.4-12.4) 09/13/23 05:50 Immature Gran % (Auto) 0.1 % 09/12/23 10:07 Neut % (Auto) 70.7 % 09/12/23 10:07 Lymph % (Auto) 13.0 % 09/12/23 10:07 Maury % (Auto) 12.3 % 09/12/23 10:07 Eos % (Auto) 2.9 % 09/12/23 10:07 Baso % (Auto) 1.0 % 09/12/23 10:07 Neut # (Auto) 4.82 K/uL (1.40-6.50) 09/12/23 10:07 Lymph # (Auto) 0.89 K/uL (1.20-3.40) L 09/12/23 10:07 Maury # (Auto) 0.84 K/uL (0.11-0.59) H 09/12/23 10:07 Eos # (Auto) 0.20 K/uL (0.00-0.50) 09/12/23 10:07 Baso # (Auto) 0.07 K/uL (0.00-0.20) 09/12/23 10:07 Immature Gran # (Auto) 0.01 K/uL (0.01-0.20) 09/12/23 10:07 PT 11.2 Seconds (9.0-12.0) 09/12/23 10:07 INR 1.0 (0.9-1.1) 09/12/23 10:07 APTT 27 Seconds (21-31) 09/12/23 10:07 PTT Ratio 1.0 09/12/23 10:07 Heparin Anti-Xa, Unfract 0.33 IU/ml (0.3-0.7) 09/13/23 05:50 Sodium 137 mmol/L (136-145) 09/13/23 05:50 Potassium 4.0 mmol/L (3.5-5.1) 09/13/23 05:50 Chloride 105 mmol/L (98-107) 09/13/23 05:50 Carbon Dioxide 26 mmol/L (21-32) 09/13/23 05:50 Anion Gap 6 (3-11) 09/13/23 05:50 BUN 21 mg/dl (6-23) 09/13/23 05:50 Creatinine 0.91 mg/dl (0.6-1.4) 09/13/23 05:50 Est Cr Clr Drug Dosing 60.5 ml/min 09/13/23 05:50 Est GFR ( Amer) 91.9 ml/min 09/13/23 05:50 Est GFR (Non-Af Amer) 79.3 ml/min 09/13/23 05:50 BUN/Creatinine Ratio 23.1 (10-20) H 09/13/23 05:50 Glucose 98 mg/dl (70-99(Fasting)) 09/13/23 05:50 POC Glucose 107 mg/dl (70-99) H 09/13/23 11:05 Estimat Average Glucose 137 mg/dl 09/13/23 05:50 Hemoglobin A1c 6.4 % (4.5-5.6) H 09/13/23 05:50 Calcium 9.1 mg/dl (8.6-10.3) 09/13/23 05:50 Phosphorus 3.3 mg/dl (2.5-4.9) 09/13/23 05:50 Magnesium 2.4 mg/dl (1.7-2.4) 09/13/23 05:50 Total Bilirubin 0.8 mg/dl (0.2-1.0) 09/12/23 10:07 AST 22 U/L (13-39) 09/12/23 10:07 ALT 24 U/L (7-52) 09/12/23 10:07 Alkaline Phosphatase 42 U/L (34-104) 09/12/23 10:07 Troponin I High Sens 9.0 pg/ml (0-20) 09/12/23 10:07 Total Protein 7.1 gm/dl (6.0-8.3) 09/12/23 10:07 Albumin 4.1 gm/dl (3.4-5.0) 09/12/23 10:07 Globulin 3.0 gm/dl (2.5-4.0) 09/12/23 10:07 Albumin/Globulin Ratio 1.4 (0.9-2) 09/12/23 10:07 Triglycerides 51 mg/dl (0-150) 09/13/23 05:50 Cholesterol 127 mg/dl (0-200) 09/13/23 05:50 LDL Cholesterol, Calc 48 mg/dl 09/13/23 05:50 VLDL Cholesterol, Calc 10 mg/dl (0-30) 09/13/23 05:50 HDL Cholesterol 69 mg/dl 09/13/23 05:50 Cholesterol/HDL Ratio 1.8 (0-5) 09/13/23 05:50 TSH 3.567 uIu/ml (0.300-4.500) 09/12/23 10:07 Urine Color Yellow 09/12/23 12:27 Urine Appearance Clear (Clear) 09/12/23 12:27 Urine pH 5.5 (4.5-7.5) 09/12/23 12:27 Ur Specific [place] > 1.045 (1.000-1.030) H 09/12/23 12:27 Urine Protein Trace (Negative) H 09/12/23 12:27 Urine Glucose (UA) Negative (Negative) 09/12/23 12: Urine Ketones 1+ (Negative) H 09/12/23 12: Urine Blood Negative (Negative) 09/12/23 12: Urine Nitrite Negative (Negative) 09/12/23 12: Urine Bilirubin Negative (Negative) 09/12/23 12:27 Urine Urobilinogen Negative (Negative) 09/12/23 12:27 Ur Leukocyte Esterase Negative (Negative) 09/12/23 12:27 Urine WBC (Auto) 0-5 /hpf (0-5) 09/12/23 12:27 Urine RBC (Auto) 0-2 /hpf (0-2) 09/12/23 12: U Hyaline Cast (Auto) 0-2 /lpf (0-2) 09/12/23 12: U Epithel Cells (Auto) 0-2 /hpf (0-2) 09/12/23 12:27 Urine Bacteria (Auto) None Seen (None Seen) 09/12/23 12:27 Impressions Chest X-Ray 09/12/23 10:00 XR chest 1V portable HISTORY: 78 years-old Male neuro deficit, acute stroke suspected acute strokelike symptoms COMPARISON: 01/01/2014 TECHNIQUE: AP view of the chest FINDINGS: Cardiac silhouette is mildly enlarged. Median sternotomy. No pneumothorax or pleural effusion. Subsegmental right basilar airspace opacities. Bones appear grossly intact. IMPRESSION: 1. Mild patchy right basilar opacities may represent atelectasis versus pneumonia. 2. Cardiomegaly without pulmonary edema. ACT 112: Negative or not required by law. The above report was generated using voice recognition software. It may contain grammatical, syntax or spelling errors. Electronically signed by: Morgan Islas M.D. 09/12/2023 11:[address] 09/12/23 10:00 CT angio head w con, CT angio neck with con, CT head/brain wo con CLINICAL HISTORY: 78 years-old Male with neuro deficit, acute stroke suspected. Acute stroke like symptoms COMPARISON STUDY: None TECHNIQUE: Unenhanced axial CT scan of the brain is performed. Subsequently, following the IV administration of 119 cc of Optiray, CT angiogram of the head and neck was performed from the aortic arch to the skull apex. Images are reviewed in the axial, sagittal, and coronal planes. 3-D MIPS images are created and assessed. IV contrast was administered without complication. All measurements were obtained according to NASCET criteria. A dose lowering technique was utilized adhering to the principles of ALARA. CT DOSE: 1008.57 mGy.cm FINDINGS: CT BRAIN: There is no acute intracranial hemorrhage, midline shift, hydrocephalus, intracranial mass, territorial ischemia or abnormal extra-axial collections. Involutional changes with chronic microvascular ischemic disease. There is a linear 1.5 cm hypodense focus within the left mid posterior aspect of the cerebellum on image 6 series 3. No abnormal intra-axial or extra-axial enhancement. Mastoid air cells and middle ear cavities are clear. No calvarial fracture. Paranasal sinuses are clear. CT ANGIOGRAM OF THE HEAD AND NECK: Atherosclerosis of the thoracic aorta. Median sternotomy. Patency of the innominate and image subclavian arteries. The common carotid arteries are patent. There is severe atherosclerosis of the carotid bulbs and proximal cervical segments of the internal carotid arteries. Motion degradation limits the study. 80% stenosis of the proximal cervical segment right ICA with 70% stenosis on the left. Additional areas of high-grade stenosis noted within the bilateral supraclinoid segments of the internal carotid arteries secondary to extensive atherosclerosis. Mild multifocal stenoses of the bilateral middle cerebral arteries. The anterior cerebral arteries are patent. Dominant left vertebral artery. Developmentally diminutive right vertebral artery demonstrates high-grade stenosis within the proximal V3 segment on image 286 secondary to atherosclerotic plaque. Fenestrated basilar artery demonstrates areas of moderate stenosis at the level of the fenestration. Moderate multifocal stenoses of the posterior cerebral arteries bilaterally. No aneurysm or dissection. No proximal branch occlusion identified. No pneumothorax. Unremarkable soft tissues. Degenerative changes of the cervical spine. IMPRESSION: 1. Age-indeterminate 1.5 cm left cerebellar lacunar infarct. 2. No acute or subacute territorial infarct. 3. Atherosclerosis with high grade stenosis of the bilateral proximal cervical and supraclinoid segments of the internal carotid arteries. 4. High-grade stenoses of the V3 segment right vertebral artery with additional multifocal areas of moderate cerebral vascular stenoses as above. ACT 112: Negative or not required by law. The above report was generated using voice recognition software. It may contain grammatical, syntax or spelling errors. Electronically signed by: Morgan Islas M.D. 09/12/2023 11:56 AM Head CTA 09/12/23 10:00 CT angio head w con, CT angio neck with con, CT head/brain wo con CLINICAL HISTORY: 78 years-old Male with neuro deficit, acute stroke suspected. Acute stroke like symptoms COMPARISON STUDY: None TECHNIQUE: Unenhanced axial CT scan of the brain is performed. Subsequently, following the IV administration of 119 cc of Optiray, CT angiogram of the head and neck was performed from the aortic arch to the skull apex. Images are reviewed in the axial, sagittal, and coronal planes. 3-D MIPS images are created and assessed. IV contrast was administered without complication. All measurements were obtained according to NASCET criteria. A dose lowering technique was utilized adhering to the principles of ALARA. CT DOSE: 1008.57 mGy.cm FINDINGS: CT BRAIN: There is no acute intracranial hemorrhage, midline shift, hydrocephalus, intracranial mass, territorial ischemia or abnormal extra-axial collections. Involutional changes with chronic microvascular ischemic disease. There is a linear 1.5 cm hypodense focus within the left mid posterior aspect of the cerebellum on image 6 series 3. No abnormal intra-axial or extra-axial enhancement. Mastoid air cells and middle ear cavities are clear. No calvarial fracture. Paranasal sinuses are clear. CT ANGIOGRAM OF THE HEAD AND NECK: Atherosclerosis of the thoracic aorta. Median sternotomy. Patency of the innominate and image subclavian arteries. The common carotid arteries are patent. There is severe atherosclerosis of the carotid bulbs and proximal cervical segments of the internal carotid arteries. Motion degradation limits the study. 80% stenosis of the proximal cervical segment right ICA with 70% stenosis on the left. Additional areas of high-grade stenosis noted within the bilateral supraclinoid segments of the internal carotid arteries secondary to extensive atherosclerosis. Mild multifocal stenoses of the bilateral middle cerebral arteries. The anterior cerebral arteries are patent. Dominant left vertebral artery. Developmentally diminutive right vertebral artery demonstrates high-grade stenosis within the proximal V3 segment on image 286 secondary to atherosclerotic plaque. Fenestrated basilar artery demonstrates areas of moderate stenosis at the level of the fenestration. Moderate multifocal stenoses of the posterior cerebral arteries bilaterally. No aneurysm or dissection. No proximal branch occlusion identified. No pneumothorax. Unremarkable soft tissues. Degenerative changes of the cervical spine. IMPRESSION: 1. Age-indeterminate 1.5 cm left cerebellar lacunar infarct. 2. No acute or subacute territorial infarct. 3. Atherosclerosis with high grade stenosis of the bilateral proximal cervical and supraclinoid segments of the internal carotid arteries. 4. High-grade stenoses of the V3 segment right vertebral artery with additional multifocal areas of moderate cerebral vascular stenoses as above. ACT 112: Negative or not required by law. The above report was generated using voice recognition software. It may contain grammatical, syntax or spelling errors. Electronically signed by: Morgan Islas M.D. 09/12/2023 11:56 AM Neck CTA 09/12/23 10:00 CT angio head w con, CT angio neck with con, CT head/brain wo con CLINICAL HISTORY: 78 years-old Male with neuro deficit, acute stroke suspected. Acute stroke like symptoms COMPARISON STUDY: None TECHNIQUE: Unenhanced axial CT scan of the brain is performed. Subsequently, following the IV administration of 119 cc of Optiray, CT angiogram of the head and neck was performed from the aortic arch to the skull apex. Images are reviewed in the axial, sagittal, and coronal planes. 3-D MIPS images are created and assessed. IV contrast was administered without complication. All measurements were obtained according to NASCET criteria. A dose lowering technique was utilized adhering to the principles of ALARA. CT DOSE: 1008.57 mGy.cm FINDINGS: CT BRAIN: There is no acute intracranial hemorrhage, midline shift, hydrocephalus, intracranial mass, territorial ischemia or abnormal extra-axial collections. Involutional changes with chronic microvascular ischemic disease. There is a linear 1.5 cm hypodense focus within the left mid posterior aspect of the cerebellum on image 6 series 3. No abnormal intra-axial or extra-axial enhancement. Mastoid air cells and middle ear cavities are clear. No calvarial fracture. Paranasal sinuses are clear. CT ANGIOGRAM OF THE HEAD AND NECK: Atherosclerosis of the thoracic aorta. Median sternotomy. Patency of the innominate and image subclavian arteries. The common carotid arteries are patent. There is severe atherosclerosis of the carotid bulbs and proximal cervical segments of the internal carotid arteries. Motion degradation limits the study. 80% stenosis of the proximal cervical segment right ICA with 70% stenosis on the left. Additional areas of high-grade stenosis noted within the bilateral supraclinoid segments of the internal carotid arteries secondary to extensive atherosclerosis. Mild multifocal stenoses of the bilateral middle cerebral arteries. The anterior cerebral arteries are patent. Dominant left vertebral artery. Developmentally diminutive right vertebral artery demonstrates high-grade stenosis within the proximal V3 segment on image 286 secondary to atherosclerotic plaque. Fenestrated basilar artery demonstrates areas of moderate stenosis at the level of the fenestration. Moderate multifocal stenoses of the posterior cerebral arteries bilaterally. No aneurysm or dissection. No proximal branch occlusion identified. No pneumothorax. Unremarkable soft tissues. Degenerative changes of the cervical spine. IMPRESSION: 1. Age-indeterminate 1.5 cm left cerebellar lacunar infarct. 2. No acute or subacute territorial infarct. 3. Atherosclerosis with high grade stenosis of the bilateral proximal cervical and supraclinoid segments of the internal carotid arteries. 4. High-grade stenoses of the V3 segment right vertebral artery with additional multifocal areas of moderate cerebral vascular stenoses as above. ACT 112: Negative or not required by law. The above report was generated using voice recognition software. It may contain grammatical, syntax or spelling errors. Electronically signed by: Morgan Islas M.D. 09/12/2023 11:56 AM Brain MRI 09/12/23 12:51 MR brain wo/w con HISTORY: 78 years-old Male stroke eval acute dizziness with age-indeterminate left cerebellar lacunar infarct seen by head CT COMPARISON: Head CT of same day TECHNIQUE: Multiplanar multisequence MRI the brain was obtained with and without IV contrast FINDINGS: No restricted diffusion to suggest acute or subacute infarct. Chronic left cerebellar lacunar infarcts. Involutional changes with moderate T2/FLAIR hyperintense foci throughout the white matter. Cerebral venous sinuses and major arterial flow voids appear patent. Skull, orbits and soft tissues are unremarkable. Cerebral venous sinuses are. No abnormal enhancement. IMPRESSION: 1. No acute intracranial abnormality. No acute or subacute infarct. 2. Involutional changes with moderate chronic microvascular ischemic disease. 3. Chronic left cerebellar lacunar infarcts. 4. No abnormal enhancement. ACT 112: Negative or not required by law. The above report was generated using voice recognition software. It may contain grammatical, syntax or spelling errors. Electronically signed by: Morgan Islas M.D. 09/12/2023 3:39 PM Ordered Studies 09/12/23 10:00 CT angio head w con Stat CT angio neck with con Stat CT head/brain wo con Stat 09/12/23 12:51 MRI Brain [MR brain wo/w con] Stat Hospital Course (1) Cerebrovascular disease: Plan 78-year-old gentleman with PMH of T2DM [diet-controlled, outpatient A1c of 6.2, 6.4, 6.4 from [id number]], HTN, CAD status post CABG 2012, prostate cancer presented to the ED 09/11 with complaint of right hearing loss, ataxia, vertigo. He is being managed for the following: Strokelike symptoms Vertigo with unilateral hearing loss--likely peripheral vertigo Ataxia likely secondary to vertigo Chronic CVA --MRI Brain:No acute intracranial abnormality. No acute or subacute infarct. Involutional changes with moderate chronic microvascular ischemic disease. Chronic left cerebellar lacunar infarcts.. No abnormal enhancement. --Head/Neck CTA:Age-indeterminate 1.5 cm left cerebellar lacunar infarct. No acute or subacute territorial infarct. Atherosclerosis with high grade stenosis of the bilateral proximal cervical and supraclinoid segments of the internal carotid arteries. High-grade stenoses of the V3 segment right vertebral artery with additional multifocal areas of moderate cerebral vascular stenoses as above. --ECHO: Mild concentric LVH. EF 60 to 65%. Grade 1 diastolic dysfunction. Aortic valve sclerosis moderate, without significant stenosis. Mild tricuspid regurgitation. No ASD. No interatrial shunt. -- Lipid panel within normal limits, LDL 48 -- Continue aspirin, Lipitor No focal deficits on exam Meclizine as needed Evaluated by PT OT, speech Discussed with neurology Dr. Haley on 09/13/2023: Stable for discharge Advised to follow-up with ENT, neurology upon discharge Patient and patient's family understands and agrees with current management Bilateral carotid artery stenosis Chronic CTA as above Appreciate vascular surgery input Continue aspirin, Lipitor Needs follow-up with vascular surgery as outpatient Atrial ectopy IV heparin discontinued Echo as above Appreciate cardiology input Need ZIO monitor as outpatient Other chronic medical conditions: HTN --continue home meds Hyperlipidemia--continue Lipitor Diabetes: Diet controlled --HbA1c 6.4 DVT Px: IV Heparin discontinued CODE STATUS Full code Total Time Total Time Spent Total Time Spent (In Minutes): 55 minutes Discharge Plan Discharge Items Patient Disposition: Home - Self-Care Reason For Visit: STROKE LIKE SYMPTOMS Discharge Diagnosis: Bilateral carotid artery disease Vertigo and unilateral hearing loss Atrial ectopy Chronic left cerebellar lacunar infarcts Activity: Per Instructions section Exercise/Sports: Wait until after follow-up appointment Non-emergency contact: Primary Care Provider, Surgeon, Specialist and Neurologist Call non-emergency contact if: you have any medication questions, your symptoms worsen, your pain is concerning for you and you have a fever Follow-up/Referrals: Tiffanie Galindo PA-C [Physician Assistant Store Manager Operations] - (Date & Time 10/11/2023 11:20 AM Provider Tiffanie Galindo PA-C Department Neurology [facility] ) Franchesca Patricio PA-C [Physician Assistant Store Manager Operations] - (The Vascular office will contact you for a follow up appointment. ) Latonya Irving DO [Primary Care Provider] - (The [address] office will contact you for a hospital discharge appointment.) Diet: Heart Healthy Franny Attending Provider Instructions: Follow-up with your Primary care physician in 1 week Follow-up with your ENT surgeon for further evaluation of vertigo, hearing loss as advised Follow-up with your Neurologist Dr. Haley in 3 to 4 weeks Follow-up with your vascular surgeon Dr. Motta for further evaluation of right vertebral artery stenosis --- Outpatient ZIO (event monitor) to be arranged by your primary care physician/chemical radiation technician to evaluate any arrhythmias Seek immediate medical attention if your symptoms reoccur or worsen Please take all medications as instructed on discharge list below. Please call if you have any questions or problems. You can reach a [facility] at [facility] 24 hours a day by calling [phone] Franny Senior Database Administrator Provider Instructions: Risk Factors for Stroke: You can reduce your chances of stroke by working with your medical provider to adopt a healthy lifestyle. Some specific ways to lower your chance of stroke are: * If you are a smoker, now is the time to stop smoking cigarettes * If you are diabetic, improve the control of your blood sugars * Avoid excessive amounts of alcohol * Control high blood pressure * Lose weight if you are overweight * Be sure to lead an active lifestyle * Eat a healthy diet low in salt, cholesterol and fat You should know about other risk factors for stroke that you are unable to control. These include: * Age 55 years or older * Male gender * Certain racial groups: , or / * Family History of Stroke, Mini stroke or Heart Attack * Sickle Cell Disease Follow Up: It is important for you to keep your follow up appointments with your medical provider. Who to Call and When: Medical Emergencies: Call 911 immediately if you experience any of the following warning signs and symptoms of Stroke: * Sudden numbness or weakness of the face, arm or leg, especially on one side of the body * Sudden confusion, trouble speaking or understanding * Sudden trouble seeing in one or both eyes * Sudden trouble walking, dizziness, loss of balance or coordination * Sudden severe headache with no cause Do not delay calling 911 if you experience any warning signs or symptoms of a stroke. Delay in seeking medical attention may affect what treatments can be given to you. . Pending Studies at Discharge: No Stand-Alone Forms: My [facility] Box[facility], Smoking Cessation Medications and DC Order Prescriptions: New meclizine 25 mg tablet 25 mg PO TID PRN (Reason: dizziness) Qty: 30 0RF Continued multivitamin Tablet 1 tab PO QAM atorvastatin 40 mg Tablet 40 mg PO DAILY aspirin [Aspir-81] 81 mg Tablet,Delayed Release (Dr/Ec) 81 mg PO DAILY grape seed extract 50 mg Capsule 50 mg PO DAILY lisinopril-hydrochlorothiazide 10-12.5 mg Tablet 0 tab PO DAILY Rx Instructions: Per spouse, pt gets this medication from [facility] in [place]. I called [facility] @ [phone]. Was transferred to [facility]. Was told by pharmacist that pt never picked up the medication, pt has only picked up Lisinopril 10mg daily. However, spouse insist that he is on this medication. Original directions per spouse: 0.5mg by mouth daily metoprolol tartrate 25 mg Tablet 25 mg PO BID Calcium 600 + D(3) 600 mg calcium- 200 unit Capsule 1 cap PO BID omega 2-law-yzv-fish oil [Fish Oil] 1,000 mg (120 mg-180 mg) Capsule 1 cap PO DAILY Discharge Orders: Discharge Order (Routine); Ordered 09/13/23 Ordered By: Yoel Garduno Admission Data Admit Date/Time: 09/12/23 13:26 Attending Provider: Yoel Garduno Admit Provider: Rodolfo Cobb Primary Care Provider: Latonya Irving Other Providers: Rodolfo Cobb; Darci Ballesteros; Henry Garcia; Silverio Motta Other Interventions: Discharge Summary Assessment (RN) Last Done: 09/13/23 15:17
[2023-09-13] MEDS ORDERED: LANTUS PER UNIT CHARGE SC ONE (21:00)
[2023-09-13] MEDS ORDERED: LANTUS PER UNIT CHARGE SC SCH (21:00)
== END 2023-09-13 16:06 | disposition home or self-care (01) | DRG 68 ==
LOC: ED 09:39 → SUATTDRO 13:26 → 2E 13:26